=== PATIENT | female | born 1955 | race Caucasian/White ===

== ENCOUNTER 2016-06-18 08:08 | Day surgery (SDC) | payer MEDICARE, OTHER ==
[2016-06-15 08:25] VITALS: BMI 42.7
[~2016-06-18 08:08] MED LIST: LACTATED RINGERS 1,000 ML IV SCH
[2016-06-18] MEDS ORDERED: LIDOCAINE 1% 20 ML VIAL (10MG/ML) FOR IV START INTRADERMA ONE (08:38)
[2016-06-18 08:44] VITALS: RESP 18; TEMP 98
[2016-06-18 08:46] LABS: Glucose,Whole Blood 132 mg/dL (75-99)
[2016-06-18] MEDS ORDERED: BUPIVACAINE (PF) 0.5% 30 ML VIAL ONE (09:16)
[2016-06-18] MEDS ORDERED: MIDAZOLAM 2 MG/2 ML VIAL ONE (09:16)
[2016-06-18] MEDS ORDERED: fentaNYL (PF) 50 MCG/ML 2 ML AMP ONE (09:16)
[2016-06-18] MEDS ORDERED: TRIAMCINOLONE ACETONIDE 40 MG/ML 1 ML VIAL ONE (09:16)
--- NOTE | 2016-06-18 09:53 | P.PCN ---
Date of Procedure: 06/18/16 Procedure(s) Performed: PREOPERATIVE DIAGNOSIS: 1-Lumbar Spondylosis with Facet Arthropathy without myelopathy. 2- Lumber degenerative disc disease POSTOPERATIVE DIAGNOSIS: 1- Lumbar Spondylosis with Facet Arthropathy without myelopathy. 2- Lumber degenerative disc disease PROCEDURES : Left Radiofrequency thermocoagulation, L3-L4, L4-L5, and L5-S1 medial branch, with fluoroscopic guidance ANESTHESIA: IV sedation with versed 2 mg and fentaneyl 100 mcg and local infiltration with lidocaine 1% 6 ml EBL: Minimal PROCEDURE INDICATION: The patient with low back pain secondary to lumbar facet arthropathy who had more than 50% relief of her pain with previous diagnostic lumbar medial branch block with bupivacaine only did the radiofrequency later on , the patient had good results with the radiofrequency on that lasted more than 6 months, currently patient complaining of severe low back pain exam was positive for facet loading test, and because patient had good results with the radiofrequency we will repeat the radiofrequency, and there is no reason to do the diagnostic medial branch block again. PROCEDURE DESCRIPTION / TECHNIQUE: The patient was seen and identified in the preoperative area. Risks, benefits, complications, including but not limited to risk of infection ,bleeding , allergic reactions to the medications and no complete pain releife , and alternatives were discussed with the patient, the patient agreed to proceed with the procedure and signed the consent. IV was started. Vital signs remained stable throughout the procedure. Patient was taken to the OR and time out was completed. The patient was placed in the prone position on the procedure table. The lumber area was prepped and draped in the usual sterile fashion. . Vital signs were closely monitored during the procedure .IV sedation was used during the procedure to decrease patients anxiety. Using AP and then oblique fluoroscopy, the ``eye of the Elver dog corresponding to the connection between the superior and transverse articular processes of Left L3, L4, and L5 were identified, marked, and localized with 1 % lidocaine. Subsequently, a 18 -cf radiofrequency cannula with a 10- mm active tip was advanced guided by fluoroscopy to each of the ``eyes of the Elver dog at Left L3, L4, and L5. Each site then underwent sensory testing at 50 Hz and 0 to 1 volt and motor testing at 2.5 Hz and 0 to 3 volt with local stimulation, but no radicular symptoms down the legs. Thereafter the Left L3-4, L4-5, and L5-S1 sites underwent radiofrequency thermocoagulation at 80 degrees celsius for 90 seconds after injecting 0.5 ml of PF lidocaine 1%. then After the thermocoagulation done , 1 ml of the block solution containing Kenalog 40 mg and 3 ml of marain 0.5% was injected at the Left L3-4 , L4-5 , and L5-S1, levels after negative aspiration of CSF and blood and with no paresthesias. Cannulas were retracted while injecting lidocaine 1% until the needle is out. At the end of the procedure, the skin was cleansed and bandages were applied. COMPLICATIONS: No acute complications. DISPOSITION / PLANS: The patient was placed in a supine position and transferred to the recovery area in a stable condition for observation and was discharged from the recovery room after meeting discharge criteria. Home discharge instructions given to the patient by the staff. The patient was reexamined prior to discharge. The patient will schedule a follow up in the clinic in 2-4 weeks.
[2016-06-18] MEDS ORDERED: IV FLUID CONTINUATION 1,000 ML IV ONE (09:57)
--- NOTE | 2016-06-18 09:58 | FL ---
FLUOROSCOPY 13 seconds of fluoroscopy time were utilized during Pain Injection. 3 images document the procedure.
[2016-06-18 10:14] VITALS: BP 105/68; PULSE 83
== END 2016-06-18 10:38 | disposition home or self-care (01) ==
LOC: ORPAIN 08:08
PROVIDERS: ATTEND Specialist
DX: M47.816 Spondylosis without myelopathy or radiculopathy, lumbar region (principal); M46.96 Unspecified inflammatory spondylopathy, lumbar region; M51.36 Other intervertebral disc degeneration, lumbar region; Z88.1 Allergy status to other antibiotic agents; Z88.5 Allergy status to narcotic agent; Z91.011 Allergy to milk products; Z88.2 Allergy status to sulfonamides; Z88.7 Allergy status to serum and vaccine; Z91.018 Allergy to other foods; Z91.048 Other nonmedicinal substance allergy status
CPT/HCPCS: 64635; 64636; 99153; 99152; J2250; J3301; J3010

== ENCOUNTER → 2016-07-11 | Outpatient (CLI) | payer MEDICARE, OTHER ==
[2016-07-11 13:11] VITALS: BP 117/76; PULSE 79; RESP 18
--- NOTE | 2016-07-11 13:38 | P.PN ---
Progress Note - Text Patient returns for followup for chronic back pain with mild radiation to legs. Patient recently underwent bilateral lumbar RFA and right shoulder TPI, which provided some relief for 3-4 weeks' interval but has had some low back pain on the right side that began after procedure; she also c/o some low back and hip pain. Patient continues on [place], Klonopin medications for pain with good relief. Patient denies adverse drug effects from medications. Today, pt denies new-onset weakness, bowel/bladder incontinence, or any other signs or symptoms of cauda equina syndrome. There are no signs of acute intoxication, and no indications of medication diversion or overuse. In addition to above, 13-point review of systems is also negative for chest pain , shortness of breath, changes in vision, changes in hearing, new onset weakness , abdominal pain, diarrhea, extreme fatigue, malaise, fever, skin changes, homicidal or suicidal ideation, or bowel or bladder incontinence. Vital Signs: Reviewed in EMR Gen: WDWN, AAOx3, NAD HEENT: NCAT, EOMI, hearing grossly normal Pulm: resp unlabored Abd: soft, NT, ND Neck: supple, trachea midline ROM in flexion lumbar spine: reduced ROM in extension lumbar spine: reduced Lumbar paravertebral tenderness: + Facet loading: + bilateral SI joint tenderness: + R side Junior's test: + R side Straight leg raise: neg Neuro: CN II-XII grossly intact, muscle strength lower extremities PRESERVED Imaging: Reviewed in EMR Assessment: 1. lumbar PLPS 2. sacroiliac joint dysfunction 3. iliolumbar syndrome Plan: 1. Explanation: Opioid and psychological risk scores were reviewed. Diagnoses , prognoses, and multiple treatment options including but not limited to physical therapy, interventional therapies, adjuvant medical therapies, narcotic medication therapies, and surgery were discussed with the patient and all questions were answered to the patient's satisfaction. 2. Opioid agreement: no opioids prescribed today 3. Counseling: The patient was counseled extensively on BODY MASS INDEX, EXERCISE. Specifically, the patient was instructed regarding the importance of weight control and exercise in the context of both chronic pain and overall health. 4. Procedures: right iliolumbar ligament injection x 1 for post-RFA pain, then right SIJ injection x 1 for sacroiliac joint dysfunction 5. Consultations: None 6. Investigations: None 7. Medications: Flexeril 10 mg #60 with three refills 8. Disposition: f/u for procedure as scheduled PQRS measures: 1-Patient's medications are documented in the chart. 2-Tobacco use is negative 3-Patient has not had a pneumococcal vaccine. 4-Advanced care planning discussed, patient unable to give. 5-Opioid contract signed with the patient. 6-Pain positive, follow-up visit or procedure scheduled 7-Patient's blood pressure measured and documented, and WNL. 8-Patient's weight was measured, and body mass index ABOVE the normal limits, and counseling was done. Patient instructed to follow up with PCP. 9-Patient WAS NOT identified as an unhealthy alcohol user.
== END | disposition home or self-care (01) ==
LOC: PNWHC3 12:49
PROVIDERS: ATTEND Anesthesiology
DX: G89.29 Other chronic pain (principal); M25.80 Other specified joint disorders, unspecified joint; Z71.3 Dietary counseling and surveillance; Z98.890 Other specified postprocedural states; Z79.891 Long term (current) use of opiate analgesic; Z79.899 Other long term (current) drug therapy
CPT/HCPCS: 99211

== ENCOUNTER 2016-07-18 11:00 | Day surgery (SDC) | payer MEDICARE, OTHER ==
[2016-07-13 14:44] VITALS: BMI 42.7
[2016-07-18 11:09] VITALS: RESP 18; TEMP 98
[2016-07-18] MEDS ORDERED: LIDOCAINE 1% 20 ML VIAL (10MG/ML) FOR IV START INTRADERMA ONE (11:12)
[2016-07-18 11:14] LABS: Glucose,Whole Blood 110 mg/dL (75-99)
[2016-07-18] MEDS ORDERED: ONDANSETRON 4 MG/2 ML VIAL IVP ONE (12:01)
[2016-07-18] MEDS ORDERED: MIDAZOLAM 2 MG/2 ML VIAL ONE (12:10)
[2016-07-18] MEDS ORDERED: BUPIVACAINE (PF) 0.5% 30 ML VIAL ONE (12:10)
[2016-07-18] MEDS ORDERED: TRIAMCINOLONE ACETONIDE 40 MG/ML 1 ML VIAL ONE (12:10)
[2016-07-18] MEDS ORDERED: fentaNYL (PF) 50 MCG/ML 2 ML AMP ONE (12:10)
--- NOTE | 2016-07-18 12:31 | P.PCN ---
Date of Procedure: 07/18/16 Preoperative Diagnosis: Myofascial pain Morbid obesity Postoperative Diagnosis: Same as above Procedure(s) Performed: Iliolumbar ligament steroid injection under fluoroscopic guidance Right lumbar paravertebral musculature steroid injection under fluoroscopic guidance Anesthesia: MAC Surgeon: Travis Gaston Pathology: none sent Condition: stable Disposition: PACU Description of Procedure: The patient was seen in the preop holding. She had bilateral lumbar medial branch RFA previously but she still had some residual pain on the right side of her lumbar spine. The patient is thought to have iliolumbar syndrome. Her most tender point on the right side of her lumbar spine was identified and skin was marked at this area. The patient was brought into the procedure room and placed in prone position. Skin was prepped with Betadine 3 and draped in a sterile manner. Lidocaine 1% was used to numb the skin over the target points as follows: The right temporal the transverse process of L5 was identified and Kenalog was 200 the skin turgor with history of progressive the right and left And the injection Target Was the Disc Lines across Her to the Iliac Crest and on the Lateral View the Tip Was at the Level of the Tip of the Transverse Process of L5 on the Right Side. I Injected 2 MLS of Marcaine 0.5% +2 Mg of Kenalog and Then the Needle Was Taken out and Placed at the Target Point That Was Marked Preoperatively and Then with X-Ray Guidance for Needle with down to the Level of the Transverse Process of L4 and I Injected Then 5 MLS Marcaine 0.5 % +40 Mg of Kenalog. The Needle used Was 22-gauge 5 Inch Quincke Spinal Needle. Patient tolerated she did well. The patient received 2 mg of IV Versed and 100 g of IV fentanyl for sedation for this procedure.
[2016-07-18] MEDS ORDERED: IV FLUID CONTINUATION 1,000 ML IV ONE (12:35)
[2016-07-18 13:06] VITALS: BP 115/60; PULSE 90
--- NOTE | 2016-07-18 16:05 | FL ---
Fluoroscopy HISTORY: Pain 9 seconds fluoroscopy time supplied to the referring clinician. 1 intraoperative C-arm images docume nt the procedure. See dictated report from anesthesia.
--- NOTE | 2016-07-23 08:42 | CDI ---
Dear Dr. Gaston, The procedure note documents MAC anesthesia was provided for this procedure. The Pain Procedure Record, however, has nothing checked unter Anesthesia Plan and lists 1mg each of Versed/Fentanyl was given. This is conflicting documentation that needs clarification. Please clarify whether the sedation provided Herbert Isabel was MAC (Monitored Anesthesia Care) or conscious sedation. PLEASE DOCUMENT THIS CLARIFICATION AN ADDENDUM TO THE PROCEDURE NOTE. Thank you for your time, Kandy GuadalupeMIDDL[facility]EX [facility] Outpatient Food Counter Attendant Malina [email or web address]
== END 2016-07-18 13:20 | disposition home or self-care (01) ==
LOC: ORPAIN 11:00
PROVIDERS: ATTEND Anesthesiology
DX: M79.1 Myalgia (principal); E66.01 Morbid (severe) obesity due to excess calories; Z68.41 Body mass index [BMI] 40.0-44.9, adult
CPT/HCPCS: 77002; 20550; J2250; J3301; J2405; J3010

== ENCOUNTER 2016-08-16 09:23 | Day surgery (SDC) | payer MEDICARE, OTHER ==
[2016-08-14 15:13] VITALS: BMI 42.7
[2016-08-16 09:46] VITALS: RESP 18; TEMP 97.7
[2016-08-16] MEDS ORDERED: LIDOCAINE 1% 20 ML VIAL (10MG/ML) FOR IV START INTRADERMA ONE (09:56)
[2016-08-16] MEDS: LACTATED RINGERS 1,000 ML IV SCH ×2 (09:56→10:45)
[2016-08-16 09:59] LABS: Glucose,Whole Blood 111 mg/dL (75-99)
[2016-08-16] MEDS ORDERED: MIDAZOLAM 2 MG/2 ML VIAL ONE (10:50)
[2016-08-16] MEDS ORDERED: BUPIVACAINE (PF) 0.5% 30 ML VIAL ONE (10:50)
[2016-08-16] MEDS ORDERED: TRIAMCINOLONE ACETONIDE 40 MG/ML 1 ML VIAL ONE (10:50)
[2016-08-16] MEDS ORDERED: fentaNYL (PF) 50 MCG/ML 2 ML AMP ONE (10:50)
--- NOTE | 2016-08-16 11:21 | FL ---
EXAMINATION TYPE: FL guided pain mgmt statistic DATE OF EXAM: 08/16/2016 11:14 AM HISTORY: Flouroscopy time 5 seconds of fluoroscopy provided. IMPRESSION: 1. Fluoroscopy time.
[2016-08-16] MEDS ORDERED: ONDANSETRON 4 MG/2 ML VIAL IVP ONE (11:37)
[2016-08-16 11:39] VITALS: BP 111/75; PULSE 87
[2016-08-16] MEDS ORDERED: IV FLUID CONTINUATION 1,000 ML IV ONE (11:48)
--- NOTE | 2016-08-16 12:44 | P.PCN ---
Date of Procedure: 08/16/16 Procedure(s) Performed: Preoperative diagnoses= 1-Right sacroiliitis. 2-lumbar spondylosis with lumbar facet arthropathy without myelopathy Postoperative diagnoses= same as preoperative diagnosis. Procedure= Right sacroiliac joint steroid injection under fluoroscopic guidance. Anesthesia= conscious sedation with Versed 2 mg and fentanyl 100 micrograms and local infiltration with lidocaine 1% 4 ml Estimated blood loss=minimal. Procedure indication= the patient had a history of severe chronic low back pain , diagnosed with sacroiliitis and lumbar sacral facet arthropathy unresponsive to conservative treatment. Procedure description= the patient was seen and identified in the preoperative holding area, risks and benefits and alternative of the procedure and possible complications discussed with the patient, and he agreed with the preceding, patient signed the consent, an IV was started, and vital signs were monitored and were stable throughout the procedure, patient was placed in the prone position or table and the lumbosacral area was prepped and draped with a sterile fashion, vital signs were closely monitored during the procedure, the fluoroscopy camera was placed in the contralateral oblique view on the right sacroiliac joint and the lower part of the joint was identified, local infiltration of the skin and subcutaneous tissue with lidocaine 1% 2 mL then a 22-gauge Quincke-type 5 inches , spinal needle advanced slowly under fluoroscopy and placed in the posterior and inferior border of the right sacroiliac joint, placement confirmed with AP and lateral view, and after appropriate needle placement confirmed and after negative aspiration for heme and CSF and there was no paresthesia during the injection, 3 ml of Marcaine 0.5 % and 40 mg of Kenalog injected after negative aspiration, the needle removed, . Patient tolerated the procedure well without any complication, The patient returned to supine position after the back was cleaned and a Band- Aid applied, the patient transported to recovery room in stable condition and he was monitored for 30 minutes before he was discharged home and then patient was reexamined before going home and patient was discharged in stable condition and patient will follow up with the pain clinic in a few weeks
== END 2016-08-16 11:59 | disposition home or self-care (01) ==
LOC: ORPAIN 09:23
PROVIDERS: ATTEND Specialist
DX: G89.29 Other chronic pain (principal); M46.1 Sacroiliitis, not elsewhere classified; Z88.5 Allergy status to narcotic agent; Z88.2 Allergy status to sulfonamides; Z88.8 Allergy status to other drugs, medicaments and biological substances; M47.816 Spondylosis without myelopathy or radiculopathy, lumbar region; M46.96 Unspecified inflammatory spondylopathy, lumbar region; E11.9 Type 2 diabetes mellitus without complications
CPT/HCPCS: 99152; J2250; J3301; J2405; J3010; G0260; 27096

== ENCOUNTER → 2016-09-19 | Outpatient (CLI) | payer MEDICARE, OTHER ==
[2016-09-19 14:52] VITALS: BP 139/79; PULSE 95; RESP 18; TEMP 97.5
--- NOTE | 2016-09-19 20:28 | P.PN ---
Subjective This is follow-up visit for this patient with a history of severe and chronic low back pain secondary to lumbar degenerative disc diseases , lumbar spondylosis with facet arthropathy, Right sacroiliitis ,we have done interventional pain management injection, radiofrequency ablation of the medial branch, lumbar area branches , recently we've done, right side Sacroiliac joint steroid injection, she reported that the sacroiliac joint injection improves her pain significantly, and she is currently taking 1-Neurontin 800 mg 3 times a day 2-Flexeril 10 mg twice a day Patient denies any side effects of the medication, denies excessive drowsiness or sleepiness, denies suicidal ideation, and reports that the current pain medication is helping To control the pain and improve activity of daily living , as she reports she had several episodes of intractable pain especially at night, and she had severe pain in the low back area, in the low back back pain radiating to the buttock. Patient denies any motor or sensory deficit , patient denies any fever or night sweats, denies any change in the bowel movements or urination Physical Examinations : 1-Constitutiona : Cooperative , not in acute distress . 2-HEENT : nech ; supple , no Lymphadenopathy , no Thyromegaly , normal thyroid size . eyes : no ptosis , no icterus, no photophobia . ENT : normal of hearing , normal oropharynx , no Thrush . 3- Respiratory : Chest clear to auscultations Bilaterally , no wheezing , no Rhonchi . 4- Cardiovascular : regular rate and rhythem , S1 , S2 , no S3 , no S4. 5- Gastrointestinal : abdomen soft no tenderness , bowel sounds positive all four quadrents , no organomegally . 6- Genitourinary : Defferred . 7- neurologic : Cranial nerve II to XII intact , no focal neurological deffecit . 8-psychatric : alert , oriented X 3 , appropriate affect , intact judgment and insight . 9-Lymphatic : no Lymphadenopathy . 10- musculoskeltal : exams of the Lumber spine = motor strength lower extremities ,thigh and legs .5/5 deep tendon reflexes : normal Knee Jerk , normal ankle Jerk . lumber facet Loading Test positive strait leg raising test positive at 30 degree , RT ,LT , Fabere test positive RT and positive LT . Range of motion: Range of motion in flexion of the lumbar spine 30 degrees Range of motion range of motion of extension of the lumbar spine 10 Sever tenderness over the Sacroiliac joint on the Right , Assessment and plan = - Chronic low back pain secondary to lumbar degenerative disc disease , lumbar spondylosis with facet arthropathy without myelopathy , right sacroiliitis - diagnoses, prognosis, and treatment options including but not limited to physical therapy, surgical interventions, interventional therapies , and medication management including narcotics and adjuvant medication were discussed with pateints. Patient given prescription refill for Neurontin 800 mg every 8 hours dispense 90 with 2 refill, Flexeril 10 mg twice a day dispense 60 with 2 refills. And because patient having episode of severe intractable pain in the low back area, she will be given prescription for Percocet 5/325 every 6 hours when necessary dispense 10 Note referral and she will be seen in the pain clinic in 3 months Objective - Vital Signs Vital signs: Vital Signs Temp 97.5 F L 09/19/16 14:43 Pulse 95 09/19/16 14:43 Resp 18 09/19/16 14:43 BP 139/79 09/19/16 14:43 Pulse Ox Intake & Output 09/19/16 09/19/16 09/20/16 06:59 18:59 06:59 Weight 107.955 kg
== END | disposition home or self-care (01) ==
LOC: PNWHC3 14:38
PROVIDERS: ATTEND Specialist
DX: M51.36 Other intervertebral disc degeneration, lumbar region (principal); M47.816 Spondylosis without myelopathy or radiculopathy, lumbar region; M46.86 Other specified inflammatory spondylopathies, lumbar region; M46.1 Sacroiliitis, not elsewhere classified
CPT/HCPCS: 99211

== ENCOUNTER → 2016-12-12 | Outpatient (CLI) | payer MEDICARE, OTHER ==
[2016-12-12 12:34] VITALS: BP 129/84; PULSE 93; RESP 16; TEMP 97.8
--- NOTE | 2016-12-12 12:46 | P.PN ---
Progress Note - Text Patient returns for followup for chronic back pain with mild radiation to legs. Patient did very well with R SIJ injection performed in August 2016. Patient continues on occasional Percocet, Flexeril, and Neurontin for pain with good relief. Patient denies adverse drug effects from medications. Today, pt denies new-onset weakness, bowel/bladder incontinence, or any other signs or symptoms of cauda equina syndrome. There are no signs of acute intoxication, and no indications of medication diversion or overuse. In addition to above, 13-point review of systems is also negative for chest pain , shortness of breath, changes in vision, changes in hearing, new onset weakness , abdominal pain, diarrhea, extreme fatigue, malaise, fever, skin changes, homicidal or suicidal ideation, or bowel or bladder incontinence. Vital Signs: Reviewed in EMR Gen: WDWN, AAOx3, NAD HEENT: NCAT, EOMI, hearing grossly normal Pulm: resp unlabored Abd: soft, NT, ND Neck: supple, trachea midline ROM in flexion lumbar spine: reduced ROM in extension lumbar spine: reduced Lumbar paravertebral tenderness: + Facet loading: + bilateral SI joint tenderness: + R side Junior's test: + R side Straight leg raise: neg Neuro: CN II-XII grossly intact, muscle strength lower extremities PRESERVED Imaging: Reviewed in EMR Assessment: 1. lumbar PLPS 2. sacroiliac joint dysfunction 3. chronic pain syndrome Plan: 1. Explanation: Opioid and psychological risk scores were reviewed. Diagnoses , prognoses, and multiple treatment options including but not limited to physical therapy, interventional therapies, adjuvant medical therapies, narcotic medication therapies, and surgery were discussed with the patient and all questions were answered to the patient's satisfaction. 2. Opioid agreement: Already signed. 3. Counseling: The patient was counseled extensively on BODY MASS INDEX, EXERCISE. Specifically, the patient was instructed regarding the importance of weight control and exercise in the context of both chronic pain and overall health. 4. Procedures: right SIJ injection 4-6 weeks 5. Consultations: None 6. Investigations: None 7. Medications: Flexeril 10 mg #60 with three refills; added Percocet 5/325 # 10 (for three months) 8. Disposition: f/u for procedure as scheduled PQRS measures: 1-Patient's medications are documented in the chart. 2-Tobacco use is negative 3-Patient has not had a pneumococcal vaccine. 4-Advanced care planning discussed, patient unable to give. 5-Opioid contract signed with the patient. 6-Pain positive, follow-up visit or procedure scheduled 7-Patient's blood pressure measured and documented, and WNL. 8-Patient's weight was measured, and body mass index ABOVE the normal limits, and counseling was done. Patient instructed to follow up with PCP. 9-Patient WAS NOT identified as an unhealthy alcohol user.
== END | disposition home or self-care (01) ==
LOC: PNWHC3 11:44
PROVIDERS: ATTEND Anesthesiology
DX: G97.1 Other reaction to spinal and lumbar puncture (principal); M53.3 Sacrococcygeal disorders, not elsewhere classified; G89.4 Chronic pain syndrome
CPT/HCPCS: 99211

== ENCOUNTER 2017-02-06 07:14 | Day surgery (SDC) | payer MEDICARE, OTHER ==
[2017-02-06 07:25] VITALS: TEMP 98.1
[2017-02-06] MEDS ORDERED: LIDOCAINE 1% 20 ML VIAL (10MG/ML) FOR IV START INTRADERMA ONE (07:32)
[2017-02-06 07:35] LABS: Glucose,Whole Blood 194 mg/dL (75-99)
--- NOTE | 2017-02-06 08:10 | P.PCN ---
Date of Procedure: 02/06/17 Surgeon: Jimmy Arshad Pathology: none sent Condition: stable Disposition: PACU Description of Procedure: PREOPERATIVE DIAGNOSIS: 1-Right sacroiliitis. 2 Lumbar DDD POSTOPERATIVE DIAGNOSIS:. 1-Right sacroiliitis. 2 Lumbar DDD PROCEDURES: Right Sacroiliac joint steroid injection with fluoroscopic guidance ANESTHESIA: Local with 1% lidocaine; conscious sedation EBL: Minimal. PROCEDURE INDICATIONS: This patient with a history of low back pain secondary to sacroiliitis and lumbar DDD unresponsive to conservative management. PROCEDURE DESCRIPTION: The patient was seen and identified in the preoperative area. Risks, benefits, complications, and alternatives were discussed with the patient (including but not limited to incomplete pain relief, bleeding, infection, nerve damage, and allergies to medications), the patient agreed to proceed with the procedure and signed the consent after all questions were answered. Patient was taken to the OR and time out was completed to verify proper patient , position, laterality of pain, and allergies. Pt was placed in the prone position and a pillow was placed under the abdomen to reduce lumbar lordosis. The lumbosacral area was prepped and draped in the usual sterile fashion. Critical pause was taken. Vital signs were closely monitored during the procedure. The fluoroscopic camera was placed in contralateral oblique view and right sacroiliiac joint lower pole was identified. After local infiltration with 1% lidocaine 2 ml, Subsequently, a 22-gauge 3.5 inch spinal needle was introduced into the posteroinferior aspect of the right sacroiliac joint under direct fluoroscopic visualization. Subsequently, 4 ml of a solution of a total of 4 ml solution containing total 3 mL of 0.25% preservative-free bupivicaine mixed with 40 mg of Kenalog was injected after negative aspiration for CSF, blood, and air and negative for paresthesia. Needle was withdrawn intact. Skin was cleansed, and bandages were applied. COMPLICATIONS: None. COMMENTS: DISPOSITION / PLANS: The patient was placed in a supine position and transferred to the recovery area in a stable condition for observation and was discharged from the recovery room after meeting discharge criteria. Home discharge instructions given to the patient by the staff. The patient was reexamined prior to discharge and had significant relief. The patient will schedule a repeat procedure in 2-4 weeks.
[2017-02-06] MEDS ORDERED: IV FLUID CONTINUATION 1,000 ML IV ONE (08:15)
[2017-02-06 08:23] VITALS: RESP 16
[2017-02-06 08:40] VITALS: BP 103/64; PULSE 83
--- NOTE | 2017-02-06 09:07 | FL ---
Fluoroscopy HISTORY: Pain 3 seconds fluoroscopy time supplied to the referring clinician. 2 intraoperative C-arm images docume nt the procedure. See dictated report from anesthesia.
== END 2017-02-06 08:50 | disposition home or self-care (01) ==
LOC: ORPAIN 07:14
PROVIDERS: ATTEND Anesthesiology
DX: G89.29 Other chronic pain (principal); M46.1 Sacroiliitis, not elsewhere classified; M51.36 Other intervertebral disc degeneration, lumbar region; I10 Essential (primary) hypertension; Z91.012 Allergy to eggs; Z88.5 Allergy status to narcotic agent; Z88.2 Allergy status to sulfonamides; Z88.7 Allergy status to serum and vaccine; Z91.09 Other allergy status, other than to drugs and biological substances
CPT/HCPCS: J2250; J3301; Q9965; J3010; G0260; 27096; 99152

== ENCOUNTER → 2017-05-02 | Outpatient (CLI) | payer MEDICARE, OTHER ==
--- NOTE | 2017-05-02 16:46 | XR ---
EXAMINATION TYPE: XR chest 2V DATE OF EXAM: 05/02/2017 COMPARISON: NONE HISTORY: Cough TECHNIQUE: Frontal and lateral views of the chest are obtained. FINDINGS: There is no focal air space opacity, pleural effusion, or pneumothorax seen. The cardiac silhouette size is within normal limits. Prominent lung volumes suggests underlying COPD. May be a sp inal curvature. Patient is rotated. There may be some bronchial wall thickening. Flowing osteophytes in the thoracic spine anteriorly possibly indicative of diffuse idiopathic skeletal hyperostosis. The osseous structures are intact. IMPRESSION: Correlate for possible bronchitis. Follow-up as indicated.
== END | disposition home or self-care (01) ==
LOC: RADXRMAIN 15:42
PROVIDERS: ATTEND Family Medicine
DX: R05 Cough (principal)
CPT/HCPCS: 71020

== ENCOUNTER → 2017-10-23 | Outpatient (CLI) | payer MEDICARE, OTHER ==
[2017-10-23 14:08] VITALS: BP 138/73; PULSE 76; RESP 18; TEMP 98.2
--- NOTE | 2017-10-23 14:28 | P.PAINPG ---
Subjective Progress Note Date: 10/23/17 Principal diagnosis: Right Sacroiliitis This is a very pleasant 62-year-old woman with a long-standing history of low back pain. She is undergone previous diagnostic sacroiliac joint injections. These proved very helpful reducing her low back pain as well as the pain which radiates laterally into her hip and down her leg to approximately her knee. The symptoms have returned since she had her blocks performed last year. She is requesting to undergo radio frequency ablation of these nerves to help with her pain. She denies bowel or bladder dysfunction. She denies any weakness or falling. Objective - Vital Signs Vital signs: Vital Signs Temp 98.2 F 10/23/17 13:56 Pulse 76 10/23/17 13:56 Resp 18 10/23/17 13:56 BP 138/73 10/23/17 13:56 Pulse Ox Intake & Output 10/22/17 10/23/17 10/23/17 18:59 06:59 18:59 Weight 106.141 kg - Exam General: The patient is alert and oriented. Patient is not sedateded Patient answers all question appropriately. Cardiac: Heart is regular in rate and rhythm Respiratory: Clear to auscultation. No audible wheezes. Abdomen: Soft nontender nondistended. Lower extremities: Strength is normal bilaterally. Sensation is normal bilaterally. Reflexes are preserved and symmetric bilaterally. Straight leg raise is negative bilaterally. She is tender to palpation bilaterally over her sacroiliac joints but worse on the right side. Samaria's maneuver is positive bilaterally. Assessment and Plan (1) Sacroiliac joint pain Narrative/Plan: Plan of Care 1. Medications: Patient is currently receiving medications from another practitioner. I've counseled her about the risks of benzodiazepines and opiates. 2. Interventions: I believe the patient would benefit from radio for dizzy ablation of her right lateral branch radiofrequency ablation at the S1, S2 and S3 levels. 3. Referrals: None 4. Testing: None 5. Psychological: Patient has a significant amount psychological stressors in her life right now I've encouraged her to attend therapy sessions however she reports she is too busy to attend these. I also recommend that she attend physical therapy and she also declines this due to her schedule constraints. She will keep both of these things in mind and that should she thinks change with her schedule she will contact us so that she can begin these helpful interventions. Current Visit: Yes Status: Acute Code(s): M53.3 - SACROCOCCYGEAL DISORDERS, NOT ELSEWHERE CLASSIFIED SNOMED Code(s): 638207164 PQRS Measure Charge Sheet Measure #130: Documentation of Current Meds in Medical Chart: Patient's medications documented in chart Measure #226: Tobacco Use: Screen & Cessation Intervention: Pt screened for tobacco use AND intervention given Measure #111: Pneumonia Vaccination: Pneumococcal vaccine NOT administered or previously given Measure #47: Advance Care Plan: Advance care planning discussed & documented, pt chose/unable to give Measure #412: Opioid Treatment Agreement: No documentation of signed opioid treatment agreement Measure #408: Opioid Therapy Follow-up Evaluation: Patient had f/u eval minimum every 3 months during opioid therapy Measure #317: Preventitive Care & Scrn High Bld Press & F/U: Normal blood pressure, f/u not required Measure #128: Body Mass Index (BMI) Screening & Follow-up: BMI documented ABOVE normal parameters - f/u documented Measure #431: Unhealthy Alcohol Use Preventative Care & Scrn: Patient not identified as an unhealthy alcohol user PQRS Narrative: Smoking Status Former smoker Do You Want the Pneumonia No Vaccine AT THIS TIME? Narcotic Agreement Date Signed 09/19/16 Blood Pressure 138/73 Pain Intensity [Upper Back] 7 Pain Intensity [Lower Back] 7 Hx Alcohol Use (MH) No Home Medications: Ambulatory Orders Esomeprazole Magnesium [NexIUM] 40 mg PO HS 11/18/13 Loratadine [Claritin] 10 mg PO HS 06/10/14 Montelukast [Singulair] 10 mg PO HS tab 07/25/14 Escitalopram [Lexapro] 20 mg PO HS 02/22/15 Lubiprostone [Amitiza] 24 mcg PO HS 12/11/15 Canagliflozin/Metformin HCl [Invokamet 150-1,000 mg Tablet] 1 each PO BID glipiZIDE [Glucotrol XL] 10 mg PO DAILY 04/17/16 Lidocaine 5% Oint [Xylocaine 5% Oint] 1 applic TOPICAL DAILY PRN 09/19/16 Cyclobenzaprine [Flexeril] 10 mg PO BID PRN #60 tab 12/12/16 Carbidopa/Levodopa [Sinemet CR 50-200 mg] 2 tab PO DAILY 02/01/17 Diazepam [Valium] 10 mg PO HS 10/23/17 Gabapentin 800 mg PO QID 10/23/17 Controlled Substance Measures - Controlled Substance Measures Is patient prescribed a controlled substance at discharge?: No
== END | disposition home or self-care (01) ==
LOC: PNWHC3 12:46
PROVIDERS: ATTEND Pain Medicine Pain Medicine
DX: M53.3 Sacrococcygeal disorders, not elsewhere classified (principal); Z87.891 Personal history of nicotine dependence; Z79.899 Other long term (current) drug therapy; Z79.84 Long term (current) use of oral hypoglycemic drugs
CPT/HCPCS: 99211

== ENCOUNTER 2017-10-24 09:50 | Day surgery (SDC) | payer MEDICARE, OTHER ==
[2017-10-24] MEDS ORDERED: LACTATED RINGERS 1,000 ML IV SCH (10:00)
[2017-10-24 12:02] VITALS: RESP 18; TEMP 98.3
[2017-10-24 12:11] LABS: Glucose,Whole Blood 165 mg/dL (75-99)
--- NOTE | 2017-10-24 12:47 | P.PCN ---
Date of Procedure: 10/24/17 Procedure(s) Performed: PREOPERATIVE DIAGNOSIS: 1-Lumbosacral spondylosis with facet arthropathy without myelopathy. 2-Right sacroiliit. post operative Diagnosis: . 1-Lumbosacral spondylosis with facet arthropathy without myelopathy. 2- Right sacroiliit. PROCEDURES: 1- Right radiofrequency thermocoagulation/ablation of the L5 dorsal ramus. 2- Right multi-site radiofrequency thermocoagulation/ablation of the S1, S2, lateral branchs. The procedure was performed using fluoroscopic guidance during needle placement to assure proper position and maximize safety . ANESTHESIA: LOCAL ANESTHESIA = moderate sedation with intravenous versed 2 mg and Fentanyle 100 mcg EBL: NONE INDICATION/MEDICAL NECESSITY: History of low back pain secondary to right sacroiliitis and lumbosacral arthropathy unresponsive to more conservative treatments. The patient reported more than 50% relief of pain symptoms following 2 previous diagnostic blocks with Bupivacaine. PROCEDURE DESCRIPTION: The patient was seen and identified in the preoperative area. Risks, benefits, complications, and alternatives were discussed with the patient. The patient agreed to proceed with the procedure and signed the consent. Vital signs were checked before and after the procedure and they remained stable. Patient ambulated to the procedure room and time out was completed. The patient was placed in the prone position on the procedure table and a pillow was placed under the abdomen to reduce lumbar lordosis. The lumbosacral area was prepped and draped in the usual sterile fashion. Critical pause was taken. L5 Dorsal Ramus RF: Using right oblique fluoroscopy, the junction of the transverse process and the superior articular process of the right S1 vertebra, which correspond to the fluoroscopic image of the "eye of the Elver dog" was identified. Subsequently, a 10-cm 20 -gauge radiofrequency cannula with a 10-mm active tip was advanced under fluoroscopic guidance until contact was made with periosteum. At this level, the Sensory testing of the L5 dorsal ramus was performed at 50 Hz and 0 to 1 volt with production of concordant pain starting at 0.5 volt. Motor stimulation was done at 2.5 Hz with stimulation of mulitifidus muscle contration . No radicular symptoms or paresthesias were produced during the testing. Subsequently, the L5 dorsal ramus was subjected to a radiofrequency ablation at 80 degree celsius for 90 seconds . after 0.5% Bupivacaine 1 ml injected at each level after negative aspirations . The needle was withdrawn intact . S1, S3, and S3 Lateral Branch RF: The lateral margins of the Right S1, S2, foramina were identified using AP fluoroscopy. Under fluoroscopic guidance, three 10-cm 20 -gauge radiofrequency cannula with a 10-mm active tip were inserted at 8-10 mm peripheral to the posterior S1 foramen, at various locations using clock-face coordinates. The center of the clock was registered at the lateral margin of the foramen. The 2: 30, 4:00, and 5:30 oclock positions were used. At this level, the sensory testing of the S1 lateral branch was performed at 50 Hz and 0 to 1 volt at the three levels with production of concordant pain starting at 0.5 volt. Motor stimulation was done at 2.5 Hz. No radicular symptoms or paresthesias were produced during the testing. Subsequently, the S1 lateral branch was subjected to a radiofrequency ablation at a mode of 90 seconds at 80 degrees Celsius at the 3 levels after negative motor and sensory testing and after injecting 0.5 ml of preservative free Bupivacaine 0.5 %. The same procedure was performed at the level of the S2 foramen. the plan was to do the RFA of the lateral branches for S3 ,but i did not visualize the S3 foramina . The needle was withdrawn intact after each injection. COMPLICATIONS: The patient tolerated the procedure well without any acute complications. DISPOSTION/PLAN: The patient ambulated to the recovery area after the procedure in a stable condition for observation. Patient was reexamined prior to discharge. Patient was observed for 30 minutes in the recovery area and was discharged home, accompanied by an adult, after meeting discharged criteria. Discharge instructions were give to the patient by the staff. Patient was specifically instructed not to drive today and to rest for the rest of the day. The patient will schedule a follow up visit in the clinic in weeks or earlier if needed.
[2017-10-24] MEDS ORDERED: IV FLUID CONTINUATION 1,000 ML IV ONE (12:48)
[2017-10-24 12:50] VITALS: BP 102/66; PULSE 82
--- NOTE | 2017-10-24 13:21 | FL ---
EXAMINATION TYPE: FL guided pain mgmt statistic DATE OF EXAM: 10/24/2017 HISTORY: Flouroscopy time 12 seconds of fluoroscopy provided. IMPRESSION: 1. Fluoroscopy time.
== END 2017-10-24 13:20 | disposition home or self-care (01) ==
LOC: ORPAIN 09:50
PROVIDERS: ATTEND Specialist
DX: M47.817 Spondylosis without myelopathy or radiculopathy, lumbosacral region (principal); M46.1 Sacroiliitis, not elsewhere classified; J45.909 Unspecified asthma, uncomplicated; G47.33 Obstructive sleep apnea (adult) (pediatric); E11.9 Type 2 diabetes mellitus without complications; I47.1 Supraventricular tachycardia
CPT/HCPCS: 64640 ×2; 64635; J2250; J3301; J3010; 99152; 99153

== ENCOUNTER 2017-11-13 16:53 | Emergency (ER) | payer MEDICARE, OTHER ==
[2017-11-13 17:07] VITALS: RESP 18
[2017-11-13] MEDS ORDERED: SODIUM CHLORIDE 0.9% 1,000 ML IV ONE (17:52)
[2017-11-13] MEDS ORDERED: MORPHINE SULFATE 2 MG/ML SYRINGE IVP STA (17:54)
[2017-11-13] MEDS ORDERED: ONDANSETRON 4 MG/2 ML VIAL IVP STA (17:54)
--- NOTE | 2017-11-13 18:21 | ED ---
Skin/Abscess/FB HPI - General Chief complaint: Skin/Abscess/Foreign Body Stated complaint: POSS MRSA RT BREAST Time Seen by Provider: 11/13/17 17:38 Source: patient Mode of arrival: ambulatory Limitations: no limitations - History of Present Illness Initial comments: 62-year-old female patient presents to the emergency department today for evaluation of abscess to her right breast. Patient states that the abscess developed on Saturday. States that she did see her primary care physician at that time and was started on clindamycin. Patient states that she has had multiple abscesses in the past have been positive for MRSA. States that the abscess seems to be worsening and becoming more painful. States that is it draining purulent fluid. She denies any fevers or chills. Denies any nausea or vomiting. Patient denies any recent rash, shortness breath, chest pain, abdominal pain, diarrhea, constipation, back pain, numbness, tingling, dizziness , weakness, hematuria, dysuria, urinary urgency, urinary frequency, headache, visual changes, or any other complaints. - Related Data Home Medications Medication Instructions Recorded Confirmed Esomeprazole Magnesium [NexIUM] 40 mg PO HS 11/18/13 11/13/17 Loratadine [Claritin] 10 mg PO HS 06/10/14 11/13/17 Escitalopram [Lexapro] 20 mg PO HS 02/22/15 11/13/17 Lubiprostone [Amitiza] 24 mcg PO HS 12/11/15 11/13/17 Canagliflozin/Metformin HCl 1 tab PO BID 04/17/16 11/13/17 [Invokamet 150-1,000 mg Tablet] glipiZIDE [Glucotrol XL] 10 mg PO DAILY 04/17/16 11/13/17 Lidocaine 5% Oint [Xylocaine 5% 1 applic TOPICAL DAILY PRN 09/19/16 11/13/17 Oint] Carbidopa/Levodopa [Sinemet CR 2 tab PO DAILY 02/01/17 11/13/17 50-200 mg] Diazepam [Valium] 10 mg PO HS 10/23/17 11/13/17 Gabapentin 800 mg PO QID 11/13/17 11/13/17 Previous Rx's Medication Instructions Recorded Montelukast [Singulair] 10 mg PO HS tab 07/25/14 Cyclobenzaprine [Flexeril] 10 mg PO BID PRN #60 tab 12/12/16 Allergies Allergy/AdvReac Type Severity Reaction Status Date / Time Egg Derived Allergy Severe rash and Verified 11/13/17 17:28 severe swelling adhesive Allergy blisters Verified 11/13/17 17:28 influenza virus vaccine, Allergy Swelling Verified 11/13/17 17:28 specific [influenza virus vacc,specific] sulfamethoxazole Allergy Rash/Hives Verified 11/13/17 17:28 [From Bactrim] trimethoprim [From Bactrim] Allergy Rash/Hives Verified 11/13/17 17:28 tramadol HCl [From Ultram] AdvReac Severe "TWITCHING Verified 11/13/17 17:28 ALL OVER" clarithromycin [From Biaxin] AdvReac Hallucinati Verified 11/13/17 17:28 ons codeine AdvReac Nausea & Verified 11/13/17 17:28 Vomiting Milk Containing Products AdvReac Abdominal Verified 11/13/17 17:28 [Dairy] Pain wheat AdvReac Abdominal Verified 11/13/17 17:28 Pain trace metals Allergy Rash/Hives Uncoded 11/13/17 17:03 Review of Systems ROS Statement: Those systems with pertinent positive or pertinent negative responses have been documented in the HPI. ROS Other: All systems not noted in ROS Statement are negative. Past Medical History Past Medical History: Asthma, Blood Disorder, Cancer, Diabetes Mellitus, Fibromyalgia, GERD/Reflux, Osteoarthritis (OA), Pneumonia, Sleep Apnea/CPAP/ BIPAP, Thyroid Disorder Additional Past Medical History / Comment(s): HISTORY OF SVT (HAD CARDIAC ABLATION ), CERVICAL CANCER (in remission,) FACTOR 8 , KIDNEY STONES, PNEUMONIA JUN 2016, HX OF DIVERTICULITIS, MULTI NODULE THYROID, RAYNAUD'S. USES BIPAP FOR SLEEP APNEA. History of Any Multi-Drug Resistant Organisms: MRSA Date of last positivie culture/infection: January 2016 MDRO Source:: Abdominal Past Surgical History: Bowel Resection, Breast Surgery, Cardiac Ablation, Section, Hysterectomy, Orthopedic Surgery Additional Past Surgical History / Comment(s): KNEE ARTHROSCOPY X3-(2 ON RT & 1 ON LT), BREAST LUMPECTOMYS X4, CARDIAC ABLATION 06/14/2014, LT SHOULDER SURGERY PAIN CLINIC PROCEDURES, BONE RESECTION OF RIGHT ARM. Past Anesthesia/Blood Transfusion Reactions: Previous Problems w/ Anesthesia, Postoperative Nausea & Vomiting (PONV) Additional Past Anesthesia/Blood Transfusion Reaction / Comment(s): pt states that her blood pressure drops, no prior problems w/transfusion Past Psychological History: Anxiety, Depression Smoking Status: Former smoker Past Alcohol Use History: Rare Past Drug Use History: None Reported - Past Family History Mother Family Medical History: Congestive Heart Failure (CHF), COPD, Thyroid Disorder Additional Family Medical History / Comment(s): Entire maternal family heart issues-ablations, valve replacements,heart attack, a-fib, CHF General Exam Limitations: no limitations General appearance: alert, in no apparent distress, other (This is a well- developed, well-nourished adult female patient in no acute distress. Vital signs upon presentation are temperature 98.7F, pulse 98, respirations 18, blood pressure 153/82, pulse ox 97% on room air.) Eye exam: Present: normal appearance, PERRL, EOMI. Absent: scleral icterus, conjunctival injection, periorbital swelling ENT exam: Present: normal exam, normal oropharynx, mucous membranes moist Respiratory exam: Present: normal lung sounds bilaterally. Absent: respiratory distress, wheezes, rales, rhonchi, stridor Cardiovascular Exam: Present: regular rate, normal rhythm, normal heart sounds. Absent: systolic murmur, diastolic murmur, rubs, gallop, clicks Neurological exam: Present: alert, oriented X3, CN II-XII intact Psychiatric exam: Present: normal affect, normal mood Skin exam: Present: warm, dry, intact, normal color, other (Right breast abscess. Located at approximately 7:00 on the breast. There is central opening with purulent drainage. Minimal surrounding induration. No fluctuance.). Absent : rash Course Vital Signs 11/13/17 11/13/17 17:03 20:24 Temperature 98.7 F Pulse Rate 98 82 Respiratory 18 18 Rate Blood Pressure 153/82 112/64 O2 Sat by Pulse 97 98 Oximetry Medical Decision Making - Medical Decision Making 62-year-old female patient presented to the emergency department today for evaluation of right breast abscess and pain. Physical examination did reveal a draining wound with surrounding erythema. Labs reviewed and did reveal an elevated white blood cell count at 11.3. All other labs are normal. Ultrasound of the right breast was performed and showed no evidence of abscess or fluid collection. Patient's vital signs are stable, she is afebrile. I did discuss findings and results with the patient. I did discuss that we would be comfortable discharging her home to continue taking the clindamycin for treatment of cellulitis. She is instructed to follow-up with her primary care physician for recheck of the wound in 1-2 days. Return parameters were discussed in detail. She verbalizes understanding and agrees with this plan. - Lab Data Result diagrams: 11/13/17 18:10 11/13/17 18:10 Lab Results 11/13/17 11/13/17 Range/Units 18:10 18:10 WBC 11.3 H (3.8-10.6) k/uL RBC 4.98 (3.80-5.40) m/uL Hgb 13.8 (11.4-16.0) gm/dL Hct 42.4 (34.0-46.0) % MCV 85.1 (80.0-100.0) fL MCH 27.7 (25.0-35.0) pg MCHC 32.6 (31.0-37.0) g/dL RDW 14.8 (11.5-15.5) % Plt Count 311 (150-450) k/uL Neutrophils % 66 % Lymphocytes % 26 % Monocytes % 5 % Eosinophils % 1 % Basophils % 0 % Neutrophils # 7.4 (1.3-7.7) k/uL Lymphocytes # 2.9 (1.0-4.8) k/uL Monocytes # 0.6 (0-1.0) k/uL Eosinophils # 0.1 (0-0.7) k/uL Basophils # 0.1 (0-0.2) k/uL Sodium 139 (137-145) mmol/L Potassium 4.0 (3.5-5.1) mmol/L Chloride 107 (98-107) mmol/L Carbon Dioxide 20 L (22-30) mmol/L Anion Gap 12 mmol/L BUN 15 (7-17) mg/dL Creatinine 0.60 (0.52-1.04) mg/dL Est GFR (CKD-EPI)AfAm >90 (>60 ml/min/1.73 sqM) Est GFR (CKD-EPI)NonAf >90 (>60 ml/min/1.73 sqM) Glucose 175 H (74-99) mg/dL Calcium 9.3 (8.4-10.2) mg/dL Total Bilirubin 0.3 (0.2-1.3) mg/dL AST 29 (14-36) U/L ALT 24 (9-52) U/L Alkaline Phosphatase 85 (38-126) U/L Total Protein 6.6 (6.3-8.2) g/dL Albumin 3.8 (3.5-5.0) g/dL - Radiology Data Radiology results: report reviewed, image reviewed Ultrasound of the right breast was obtained. No abscess visualized at the site of wound. Impression by Dr. Van shows no solid or cystic masses identified in the right breast in the area of the wound. Disposition Clinical Impression: Cellulitis of right breast Disposition: HOME SELF-CARE Condition: Good Instructions: Cellulitis (ED), Abscess (ED) Additional Instructions: Apply warm compresses to the right breast. Continue taking clindamycin as directed. Follow-up with your primary care physician for recheck of the wound in 1-2 days. Return here immediately for any new, worsening, or concerning symptoms. Is patient prescribed a controlled substance at d/c from ED?: No Referrals: Saloni Dukes MD [Primary Care Provider] - 1-2 days Time of Disposition: 21:43
[2017-11-13 18:29] LABS: Basophils # (A) 0.1 k/uL (0-0.2); Basophils % (A) 0 %; Eosinophils # (A) 0.1 k/uL (0-0.7); Eosinophils % (A) 1 %; HCT 42.4 % (34.0-46.0); HGB 13.8 gm/dL (11.4-16.0); Lymphocytes # (A) 2.9 k/uL (1.0-4.8); Lymphocytes % (A) 26 %; MCH 27.7 pg (25.0-35.0); MCHC 32.6 g/dL (31.0-37.0); MCV 85.1 fL (80.0-100.0); Mean Platelet Volume 6.1; Monocytes # (A) 0.6 k/uL (0-1.0); Monocytes % (A) 5 %; Neutrophils # (A) 7.4 k/uL (1.3-7.7); Neutrophils % (A) 66 %; Platelet Count 311 k/uL (150-450); RBC 4.98 m/uL (3.80-5.40); RDW 14.8 % (11.5-15.5); WBC 11.3 k/uL (3.8-10.6)
[2017-11-13 18:33] LABS: ALT 24 U/L (9-52); AST 29 U/L (14-36); Albumin 3.8 g/dL (3.5-5.0); Alkaline Phosphatase 85 U/L (38-126); Anion Gap 12 mmol/L; Blood Urea Nitrogen 15 mg/dL (7-17); Calcium 9.3 mg/dL (8.4-10.2); Carbon Dioxide 20 mmol/L (22-30); Chloride 107 mmol/L (98-107); Glucose 175 mg/dL (74-99); Sodium 139 mmol/L (137-145); Total Bilirubin 0.3 mg/dL (0.2-1.3); Total Protein 6.6 g/dL (6.3-8.2)
--- NOTE | 2017-11-13 21:27 | USB ---
EXAMINATION TYPE: US breast limited RT DATE OF EXAM: 11/13/2017 COMPARISON: NONE CLINICAL HISTORY: Right breast abscess. Right breast open woun MERSA . No abscess visualized at site of wound. IMPRESSION: No solid or cystic masses identified in the right breast in the area of the wound.
[2017-11-13 22:08] VITALS: BP 135/82; PULSE 79; TEMP 98
== END 2017-11-13 22:08 | disposition home or self-care (01) ==
LOC: EC 16:53
DX: N61.1 Abscess of the breast and nipple (principal); D72.829 Elevated white blood cell count, unspecified; E11.9 Type 2 diabetes mellitus without complications; K21.9 Gastro-esophageal reflux disease without esophagitis; G47.30 Sleep apnea, unspecified; Z99.89 Dependence on other enabling machines and devices; E07.9 Disorder of thyroid, unspecified; F32.9 Major depressive disorder, single episode, unspecified; F41.9 Anxiety disorder, unspecified; Z86.14 Personal history of Methicillin resistant Staphylococcus aureus infection; Z87.891 Personal history of nicotine dependence; Z79.84 Long term (current) use of oral hypoglycemic drugs; Z79.899 Other long term (current) drug therapy; Z88.7 Allergy status to serum and vaccine; Z88.1 Allergy status to other antibiotic agents; Z91.018 Allergy to other foods; Z91.048 Other nonmedicinal substance allergy status; Z91.011 Allergy to milk products; Z91.012 Allergy to eggs; Z91.09 Other allergy status, other than to drugs and biological substances; Z88.2 Allergy status to sulfonamides; Z88.5 Allergy status to narcotic agent; Z88.6 Allergy status to analgesic agent; Z85.41 Personal history of malignant neoplasm of cervix uteri
CPT/HCPCS: 36415; 80053; 85025; 87040; 87070; 87205; 76642; 99283; 96374; 96375; 96361 ×2; J2405; J2270; 87077; 87186

== ENCOUNTER 2017-12-03 07:14 | Day surgery (SDC) | payer MEDICARE, OTHER ==
[2017-11-11 11:43] VITALS: BMI 42.4
[2017-12-03] MEDS ORDERED: LIDOCAINE 1% 20 ML VIAL (10MG/ML) FOR IV START INTRADERMA ONE (08:10)
[2017-12-03 08:13] VITALS: TEMP 97.6
--- NOTE | 2017-12-03 08:17 | P.PCN ---
Date of Procedure: 12/03/17 Surgeon: Rory Alarcon Description of Procedure: Procedure(s) Performed: PREOPERATIVE DIAGNOSIS: Left lumbar spondylosis POSTOPERATIVE DIAGNOSIS: PROCEDURES: Left L4, L5, sacral ala Radiofrequency ablation with fluoroscopic guidance SURGEON: Rory Alarcon MD. ANESTHESIA: Moderate sedation with intravenous versed 2 mg and fentanyl 100 mcg and local infiltration with lidocaine 1% 4 ml EBL: Minimal PROCEDURE INDICATION: The patient with low back pain secondary to lumbar facet arthropathy who had more than 50% relief of pain with previous diagnostic lumbar medial branch block with bupivacaine. PROCEDURE DESCRIPTION / TECHNIQUE: The patient was seen and identified in the preoperative area. Risks, benefits, complications, including but not limited to risk of infection ,bleeding , allergic reactions to the medications and incomplete pain relief , and alternatives were discussed with the patient, the patient agreed to proceed with the procedure and signed the consent. IV was started. The operative site was marked. Patient was taken to the OR and time out was completed. The patient was placed in the prone position on the procedure table. The lumber area was prepped and draped in the usual sterile fashion. . Vital signs were closely monitored during the procedure .IV sedation was used during the procedure to decrease patients anxiety. Using AP and then oblique fluoroscopy, the ``eye of the Elver dog corresponding to the connection between the superior and transverse articular processes of the above-mentioned levels were identified, marked, and localized with 1% lidocaine. Subsequently, a 20 [id number] radiofrequency cannula with a 10-mm active tip was advanced guided by fluoroscopy to each of the ``eyes of the Elver dog at each site then underwent sensory testing at 50 Hz and 0 to 1 volt and motor testing at 2.5 Hz and 0 to 3 volt with local stimulation, but no radicular symptoms down the legs. Then the sites underwent radiofrequency thermocoagulation at 80 degrees celsius for 90 seconds after injecting 0.5 ml of PF lidocaine 1%. then After the thermocoagulation done , 1 ml of the block solution containing depomedrol 40 mg and 4 ml of marcaine 0.5% was injected in divided doses at each levels after negative aspiration of CSF and blood and with no paresthesias. Sterile dressings were applied. COMPLICATIONS: No acute complications. DISPOSITION / PLANS: The patient was placed in a supine position and transferred to the recovery area in a stable condition for observation and was discharged from the recovery room after meeting discharge criteria. Home discharge instructions given to the patient by the staff. The patient was reexamined prior to discharge. She will follow-up in the office in 4 weeks for reevaluation.
[2017-12-03 08:19] LABS: Glucose,Whole Blood 153 mg/dL (75-99)
[2017-12-03] MEDS ORDERED: IV FLUID CONTINUATION 1,000 ML IV ONE (09:03)
[2017-12-03 09:04] VITALS: RESP 18
[2017-12-03 09:17] VITALS: BP 132/83; PULSE 88
--- NOTE | 2017-12-03 09:19 | FL ---
EXAMINATION TYPE: FL guided pain mgmt statistic DATE OF EXAM: 12/03/2017 HISTORY: Flouroscopy time 3 seconds of fluoroscopy provided. IMPRESSION: 1. Fluoroscopy time.
== END 2017-12-03 09:40 | disposition home or self-care (01) ==
LOC: ORPAIN 07:14
PROVIDERS: ATTEND Pain Medicine Pain Medicine
DX: M47.816 Spondylosis without myelopathy or radiculopathy, lumbar region (principal); E11.9 Type 2 diabetes mellitus without complications; Z88.2 Allergy status to sulfonamides; Z88.8 Allergy status to other drugs, medicaments and biological substances; Z91.048 Other nonmedicinal substance allergy status
CPT/HCPCS: 64635; 64640; J2250; J1030; J2001; J3010; 64636; 99152

== ENCOUNTER → 2018-01-07 | Outpatient (CLI) | payer MEDICARE, OTHER ==
[2018-01-07 14:51] VITALS: BP 144/84; PULSE 94; RESP 20
--- NOTE | 2018-01-07 15:23 | P.PAINPG ---
Subjective Progress Note Date: 01/07/18 This is 62 years old female with a chronic history of severe low back pain, diagnosed with lumbar spondylosis and sacroiliitis, we have done radiofrequency ablation of the sacroiliac joint, and this helped her low back pain significantly, SHE is complaining of severe mid back pain started a few weeks ago and the pain is constant and increases with any activity, though she agreed with her quality of life and ability to do activities of daily livings, she is able to ambulate without difficulty she has no motor or sensory deficit, the pain is constant localized between the shoulder blade area, radiated superiorly and inferiorly Objective - Vital Signs Vital signs: Vital Signs Temp Pulse 94 01/07/18 14:44 Resp 20 01/07/18 14:44 BP 144/84 01/07/18 14:44 Pulse Ox 99 01/07/18 14:44 Intake & Output 01/06/18 01/07/18 01/07/18 18:59 06:59 18:59 Weight 101.605 kg - Exam Physical Examinations : 1-Constitutiona : Cooperative , not in acute distress . 2-HEENT : nech ; supple , no Lymphadenopathy , normal thyroid size . eyes : no ptosis , no icterus , no photophobia . ENT : normal of hearing , normal oropharynx , no Thrush . 3- Respiratory : Chest clear to auscultations Bilaterally , no wheezing , no Rhonchi . 4- Cardiovascular : regular rate and rhythem , S1 , S2 , no S3 , no S4. 5- Gastrointestinal : abdomen soft no tenderness , bowel sounds , no organomegally . 6- Genitourinary : Defferred . 7- neurologic : Cranial nerve II to XII intact , no focal neurological deffecit . 8-psychatric : alert , oriented X 3 , appropriate affect , intact judgment and insight . 9-Lymphatic : no Lymphadenopathy . 10- musculoskeltal : Cervical Spine motor stregnth in the deltoid and biceps, normal right side , normal Left side motor stregnth biceps and the wrist extensors normal right side ,normal left side . motor stregnth in the triceps muscle . normal Right side , normal Left side deep tendon reflexes normal at the biceps , normal at Brachioradialis , normal at triceps. Thoracic spine= positive thoracic facet loading test . Multiple trigger points in the right side thoracic paravertebral muscles Lumber spine moter stegnth lower extremities ,thigh and legs 5/5 Right side , 5/5 Left side Assessment and Plan Plan: Assessment and plan= chronic low back pain secondary to lumbar spondylosis, sacroiliitis Pain improved after radiofrequency ablation of the sacroiliac joint. Mid back pain secondary to thoracic spondylosis versus myofascial pain syndrome thoracic area. We'll order ct SCAN of the thoracic spine , patient given prescription for Percocet 5/325 in the past, and the last time she used Percocet was a few months ago, patient will be given a new prescription for Percocet 5/325 every 12 hours dispense 15, and patient will be seen in few weeks MAPS reviewed and it was appropriate , risk of opioid discussed with the patient, patient's signed narcotic agreement Patient advised not to use any benzodiazepines with the narcotics, and she understood Time with Patient: Less than 30 PQRS Measure Charge Sheet Measure #130: Documentation of Current Meds in Medical Chart: Patient's medications documented in chart Measure #226: Tobacco Use: Screen & Cessation Intervention: Pt not a tobacco user Measure #111: Pneumonia Vaccination: Pneumococcal vaccine NOT administered or previously given Measure #47: Advance Care Plan: Advance care planning discussed & documented, pt chose/unable to give Measure #412: Opioid Treatment Agreement: Documented signed opioid trtmnt agreemnt min once during opioid trtmnt Measure #408: Opioid Therapy Follow-up Evaluation: Patient had f/u eval minimum every 3 months during opioid therapy Measure #317: Preventitive Care & Scrn High Bld Press & F/U: Pre-hypertensive or hypertensive BP documented, pt will f/u with PCP Measure #128: Body Mass Index (BMI) Screening & Follow-up: BMI documented ABOVE normal parameters - f/u documented Measure #131: Pain Assessment & Follow-up: Pain positive & plan documented, Follow-up scheduled Measure #431: Unhealthy Alcohol Use Preventative Care & Scrn: Patient not identified as an unhealthy alcohol user PQRS Narrative: Smoking Status Former smoker Do You Want the Pneumonia No Vaccine AT THIS TIME? Narcotic Agreement Date Signed 09/19/16 Blood Pressure 144/84 Pain Intensity [Lower Back] 8 Scale Used Numeric (1 - 10) Hx Alcohol Use (MH) No Home Medications: Ambulatory Orders Esomeprazole Magnesium [NexIUM] 40 mg PO HS 07/16/14 Montelukast [Singulair] 10 mg PO HS tab 07/25/14 Escitalopram [Lexapro] 20 mg PO HS 02/22/15 Lubiprostone [Amitiza] 24 mcg PO HS 12/11/15 Canagliflozin/Metformin HCl [Invokamet 150-1,000 mg Tablet] 1 tab PO BID glipiZIDE [Glucotrol XL] 10 mg PO DAILY 04/17/16 Lidocaine 5% Oint [Xylocaine 5% Oint] 1 applic TOPICAL DAILY PRN 09/19/16 Cyclobenzaprine [Flexeril] 10 mg PO BID PRN #60 tab 12/12/16 Carbidopa/Levodopa [Sinemet CR 50-200 mg] 2 tab PO DAILY 02/01/17 Diazepam [Valium] 10 mg PO HS 10/23/17 Gabapentin 800 mg PO QID 11/13/17 Controlled Substance Measures - Controlled Substance Measures Is patient prescribed a controlled substance at discharge?: Yes When asked, does pt state using other controlled substances?: No If prescribed controlled substance>3 days was MAPS reviewed?: Yes If Rx opioid, was Start Talking consent form obtained?: Yes If opioid is for acute pain is fill amount 7 days or less?: No Was information provided regarding opioid addiction?: Yes
== END | disposition home or self-care (01) ==
LOC: PNWHC3 13:37
PROVIDERS: ATTEND Specialist
DX: G89.29 Other chronic pain (principal); M54.5 Low back pain; M54.9 Dorsalgia, unspecified; M47.816 Spondylosis without myelopathy or radiculopathy, lumbar region; M46.1 Sacroiliitis, not elsewhere classified; Z79.891 Long term (current) use of opiate analgesic; Z87.891 Personal history of nicotine dependence; Z79.899 Other long term (current) drug therapy
CPT/HCPCS: 99211

== ENCOUNTER → 2018-01-29 | Outpatient (CLI) | payer MEDICARE, OTHER ==
--- NOTE | 2018-01-29 13:15 | CT ---
EXAMINATION TYPE: CT thoracic spine wo con DATE OF EXAM: 01/29/2018 COMPARISON: None HISTORY: 62-year-old female with back pain, Spondylosis without myelopathy or radiculopathy TECHNIQUE: Contiguous axial scanning of the thoracic spine without IV contrast. Coronal and sagittal reconstructions performed. CT DLP: 1809.2 mGycm Automated exposure control for dose reduction was used. FINDINGS: An emphysematous cyst is seen in the right upper lobe. Calcified granulomas in the spleen. No prevert ebral or paravertebral soft tissue abnormality. There is bridging anterior endplate spondylosis throughout the mid to lower thoracic spine with scatt ered endplate Schmorl's nodes in associated mild degenerative disc disease. Vertebral body heights are preserved and alignment is maintained. Slight leftward undulating curvature along the lower thoracic spine. By CT, no large focal disc herniation is seen. No appreciable spinal canal stenosis. No significant bony neuroforaminal narrowing on either side. IMPRESSION: 1. DISH WITHIN THE MID TO LOWER THORACIC SPINE WITH SCATTERED ENDPLATE SCHMORL'S NODES AND ASSOCIATED MILD DEGENERATIVE DISC DISEASE. 2. NO LARGE FOCAL DISC HERNIATION SEEN BY CT. NO SIGNIFICANT NEURAL FORAMINAL STENOSIS IDENTIFIED.
== END | disposition home or self-care (01) ==
LOC: RADCTMAIN 11:58
PROVIDERS: ATTEND Specialist
DX: M51.34 Other intervertebral disc degeneration, thoracic region (principal)
CPT/HCPCS: 72128

== ENCOUNTER → 2018-02-05 | Outpatient (CLI) | payer MEDICARE, OTHER ==
[2018-02-05 13:11] VITALS: BP 141/73; PULSE 97; RESP 16
--- NOTE | 2018-02-05 18:18 | P.PAINPG ---
Subjective Progress Note Date: 02/05/18 Principal diagnosis: Lumbar spondylosis, thoracic spondylosis this is a pleasant 62-year-old woman with a history of intractable low back pain. She is undergone diagnostic lumbar medial branch nerve blocks. These were very helpful for her and she followed up with radiofrequency ablation. This was extremely helpful and has significantly reduced her low back pain. She now complains of mid back pain. This was a complaint at her last visit. Imaging was ordered. This demonstrates thoracic spondylosis in her mid and lower thoracic levels. She denies lumbar radicular symptoms. She denies up our bladder dysfunction. Objective - Vital Signs Vital signs: Vital Signs Temp Pulse 97 02/05/18 12:58 Resp 16 02/05/18 12:58 BP 141/73 02/05/18 12:58 Pulse Ox 100 02/05/18 12:58 Intake & Output 02/04/18 02/05/18 02/05/18 18:59 06:59 18:59 Weight 101.605 kg - Exam General: alert and oriented. She is not sedated. She answered all questions appropriately. HEENT: normocephalic atraumatic respiratory: patient has occasional expiratory wheezes cardiovascular: regular in rate and rhythm abdomen: nontender nondistended extremities: no edema Musculoskeletal: no focal motor deficits in the musculature of the upper extremities or lower extremities. Thoracic facet loading maneuvers are positive. Neurologic: no focal sensory deficits in the upper or lower extremities. Reflexes are within normal limits in the upper and lower extremities. Assessment and Plan (1) Thoracic spondylosis without myelopathy Narrative/Plan: I discussed the patient undergoing thoracic medial branch nerve blocks. She understands this process well as she just went through it for her lumbar spine. We will schedule her for this procedure. This will be done bilaterally at the T8 through T10 levels as this corresponds to the location of her pain. Current Visit: Yes Status: Acute Code(s): M47.814 - SPONDYLOSIS W/O MYELOPATHY OR RADICULOPATHY, THORACIC REGION SNOMED Code(s): 776544218 PQRS Measure Charge Sheet Measure #130: Documentation of Current Meds in Medical Chart: Patient not eligible for medications to be documented Measure #226: Tobacco Use: Screen & Cessation Intervention: Pt not a tobacco user Measure #111: Pneumonia Vaccination: Pneumococcal vaccine NOT administered or previously given Measure #47: Advance Care Plan: Advance care planning discussed & documented, pt chose/unable to give Measure #412: Opioid Treatment Agreement: No documentation of signed opioid treatment agreement Measure #408: Opioid Therapy Follow-up Evaluation: Patient had NO f/u eval minimum every 3 months during opioid therapy Measure #317: Preventitive Care & Scrn High Bld Press & F/U: Pre-hypertensive or hypertensive BP documented, pt will f/u with PCP Measure #128: Body Mass Index (BMI) Screening & Follow-up: BMI documented ABOVE normal parameters - f/u documented Measure #131: Pain Assessment & Follow-up: Pain positive & plan documented Measure #431: Unhealthy Alcohol Use Preventative Care & Scrn: Patient not identified as an unhealthy alcohol user PQRS Narrative: Smoking Status Former smoker Do You Want the Pneumonia No Vaccine AT THIS TIME? Narcotic Agreement Date Signed 09/19/16 Blood Pressure 141/73 Pain Intensity [Posterior 7 Medial Back] Scale Used Numeric (1 - 10) Hx Alcohol Use (MH) No Home Medications: Ambulatory Orders Esomeprazole Magnesium [NexIUM] 40 mg PO HS 11/18/13 Montelukast [Singulair] 10 mg PO HS tab 07/25/14 Escitalopram [Lexapro] 20 mg PO HS 02/22/15 Lubiprostone [Amitiza] 24 mcg PO HS 12/11/15 Canagliflozin/Metformin HCl [Invokamet 150-1,000 mg Tablet] 1 tab PO BID glipiZIDE [Glucotrol XL] 10 mg PO DAILY 04/17/16 Lidocaine 5% Oint [Xylocaine 5% Oint] 1 applic TOPICAL DAILY PRN 09/19/16 Cyclobenzaprine [Flexeril] 10 mg PO BID PRN #60 tab 12/12/16 Carbidopa/Levodopa [Sinemet CR 50-200 mg] 2 tab PO DAILY 02/01/17 Diazepam [Valium] 10 mg PO HS 10/23/17 Gabapentin 800 mg PO QID 11/13/17 Controlled Substance Measures - Controlled Substance Measures Is patient prescribed a controlled substance at discharge?: No
== END | disposition home or self-care (01) ==
LOC: PNWHC3 12:44
PROVIDERS: ATTEND Pain Medicine Pain Medicine
DX: M47.814 Spondylosis without myelopathy or radiculopathy, thoracic region (principal); Z87.891 Personal history of nicotine dependence; Z79.84 Long term (current) use of oral hypoglycemic drugs; Z79.899 Other long term (current) drug therapy; Z98.890 Other specified postprocedural states
CPT/HCPCS: 99211

== ENCOUNTER → 2018-02-20 | Day surgery (SDC) | payer MEDICARE, OTHER ==
[2018-02-14 12:31] VITALS: BMI 40.6
[~2018-02-20] MED LIST changes: -LACTATED RINGERS 1,000 ML IV SCH; +SODIUM CHLORIDE 0.9% 1,000 ML IV ONE
[2018-02-20 06:32] VITALS: RESP 18
[2018-02-20 06:56] LABS: Glucose,Whole Blood 139 mg/dL (75-99)
--- NOTE | 2018-02-20 07:37 | P.PCN ---
Date of Procedure: 02/20/18 Procedure(s) Performed: PREOPERATIVE DIAGNOSIS : 1- Thoracic spondylosis with Facet Arthropathy without myelopathy . POSTOPERATIVE DIAGNOSIS: 1- Thoracic spondylosis with Facet Arthropathy without myelopathy . PROCEDURE: Diagnostic bilateral T8-9, T9-10 , and T10-11 medial branch block under fluoroscopy ANESTHESIA: moderate sedation with intravenous Versed 2 mg and Fentanyl 100 mcg. EBL: Minimal COMPLICATION: None. IV FLUIDS: 100 mL of normal saline. PROCEDURE INDICATION: Chronic mid back pain secondary to Facet arthropathy unresponsive to conservative treatment. PROCEDURE DESCRIPTION: the patient was seen and identified in the preop holding area , risks and benefits and possible complications of the procedure and alternative were discussed with the patient, and the patient agreed to proceed with the procedure and signed the consent IV was started and vital signs monitored during the procedure and fluoroscopy was used to maximize the benefit and accuracy of the needle placement, and sedation was given to decrease patient anxiety, patient was taken to the procedure room and placed in prone position vital signs monitored in the back prepped with chlorhexidine X3 then under strict sterile technique using a right oblique fluoroscopy ,the junction of the transverse process and the superior articulating process of the right T8-9 , T9-10, and T10-11 vertebra which corresponding to the fluoroscopy image of the eye of the Elver dog on the block side for the medial branches and subsequently , after local infiltration of skin and subcu tissuies with Ropivacaine 0.5 % , one mL at each level , then 25 -gauge Quincke-type needles , 3 needle was used , each one of them placed at the junction of the base of the transverse process and the superior articular process at the appropriate level, and the needle was advanced until the periosteum contacted, needle placement confirmed with AP oblique and lateral view and after appropriate needle placement confirmed, and after negative aspiration for heme and CSF and there was no paresthesia 1-1/2 mL of Ropivacaine 0.5% then half mL injected at each level after negative aspiration the needle subsequently removed and the same procedure repeated for the left side at left side at T8-9, T9-10 and T10-11 levels. At the end of the procedure and the needles removed and a bandage applied after the skin was cleaned the cleaning solution patient taken to recovery room in stable condition and monitors in the recovery room for 20-30 minutes and discharged home in stable condition after discharge criteria met and patient will follow up with the pain clinic in 2-4 weeks No steroid was used today .
[2018-02-20 07:41] VITALS: TEMP 98.2
[2018-02-20 07:57] VITALS: BP 108/62; PULSE 75
--- NOTE | 2018-02-20 08:21 | XR ---
EXAMINATION TYPE: XR chest 1V portable DATE OF EXAM: 02/20/2018 Comparison: 05/02/2017 Clinical History: 62-year-old female status post thoracic pain management procedure, assess for pneum othorax Findings: Heart upper limits of normal in size. Aorta and pulmonary vasculature within normal limits. Mild inte rstitial prominence has a chronic appearance. Partial eventration right hemidiaphragm. Large patient body habitus causes underpenetration and hazy densities over the lungs. No danna consolidation, pneum othorax, or pleural effusion seen. Impression: No appreciable pneumothorax.
--- NOTE | 2018-02-20 09:23 | FL ---
EXAMINATION TYPE: FL guided pain mgmt statistic DATE OF EXAM: 02/20/2018 HISTORY: Flouroscopy time 38 seconds of fluoroscopy provided. IMPRESSION: 1. Fluoroscopy time.
== END | disposition home or self-care (01) ==
LOC: ORPAIN 05:58
PROVIDERS: ATTEND Specialist
DX: G89.29 Other chronic pain (principal); M47.814 Spondylosis without myelopathy or radiculopathy, thoracic region; Z88.2 Allergy status to sulfonamides
CPT/HCPCS: 71045; 64490; 64491; 64492; J2250; J3010; 99152

== ENCOUNTER 2018-02-25 17:42 | Emergency (ER) | payer MEDICARE, OTHER ==
[2018-02-25 17:47] VITALS: BP 124/82; RESP 18; TEMP 98.2
--- NOTE | 2018-02-25 20:16 | XR ---
PROCEDURE: XR shoulder complete LT - 4V DATE AND TIME: 02/25/2018 7:28 PM CLINICAL INDICATION: [facility] Pain TECHNIQUE: 4 views COMPARISON: None FINDINGS: There is no definite acute fracture or malalignment. On only 1 of the 4 views the lateral acromion appears irregular, this appears to be due to undulating surface of the lateral acromion. Soft tissues are unremarkable. IMPRESSION: No acute process.
--- NOTE | 2018-02-25 20:17 | XR ---
PROCEDURE: XR humerus LT 2 views DATE AND TIME: 02/25/2018 7:27 PM CLINICAL INDICATION: [facility] Pain TECHNIQUE: Orthogonal views COMPARISON: None FINDINGS: There is no fracture or malalignment. The soft tissues are unremarkable. IMPRESSION: NO ACUTE PROCESS.
--- NOTE | 2018-02-25 20:19 | XR ---
PROCEDURE: XR elbow complete LT 4V DATE AND TIME: 02/25/2018 7:28 PM CLINICAL INDICATION: H Pain TECHNIQUE: Department protocol. 4 views COMPARISON: None FINDINGS: There are scattered osteoarthritis changes. Nondisplaced radial neck fracture cannot be exc luded. Is no fracture or malalignment. The soft tissues are unremarkable. IMPRESSION: NO DEFINITE ACUTE PROCESS. However, nondisplaced radial neck fracture cannot be excluded and, so, dedicated radial head/neck vie w can be useful. Alternative follow up plan could be follow-up imaging if pain persists.
--- NOTE | 2018-02-25 20:21 | XR ---
PROCEDURE: XR wrist complete LT 4V DATE AND TIME: 02/25/2018 7:29 PM CLINICAL INDICATION: [facility] Pain TECHNIQUE: Department protocol. COMPARISON: None FINDINGS: There is no fracture or malalignment. The soft tissues are unremarkable. IMPRESSION: NO ACUTE PROCESS.
--- NOTE | 2018-02-25 20:22 | XR ---
PROCEDURE: XR hand complete LT 3V DATE AND TIME: 02/25/2018 7:29 PM CLINICAL INDICATION: [facility] Pain TECHNIQUE: Department protocol. 3V COMPARISON: None FINDINGS: There is no fracture or malalignment. The soft tissues are unremarkable. IMPRESSION: NO ACUTE PROCESS.
--- NOTE | 2018-02-25 20:52 | ED ---
General Adult HPI - General Chief complaint: Fall Stated complaint: fall/left arm injury Time Seen by Provider: 02/25/18 17:50 Source: patient, RN notes reviewed, old records reviewed Mode of arrival: ambulatory Limitations: no limitations - History of Present Illness Initial comments: 62-year-old female patient presents to ED after mechanical fall in which she tripped dog's leash. Patient denies head trauma or loss of consciousness. Patient fell forward with her left arm taking the force of the majority of her fall. Patient also experienced minor contusions on both knees. Patient's primary complaint is her left elbow wrist and hand. Patient denies any recent fever, chills, shortness of breath, chest pain, back pain, abdominal pain, nausea or vomiting, dysuria or hematuria, constipation or diarrhea, headaches or visual changes, or any other complaints. - Related Data Home Medications Medication Instructions Recorded Confirmed Esomeprazole Magnesium [NexIUM] 40 mg PO HS 11/18/13 02/14/18 Escitalopram [Lexapro] 20 mg PO HS 02/22/15 02/14/18 Lubiprostone [Amitiza] 24 mcg PO HS 12/11/15 02/14/18 Canagliflozin/Metformin HCl 1 tab PO BID 04/17/16 02/14/18 [Invokamet 150-1,000 mg Tablet] glipiZIDE [Glucotrol XL] 10 mg PO DAILY 04/17/16 02/14/18 Lidocaine 5% Oint [Xylocaine 5% 1 applic TOPICAL DAILY PRN 09/19/16 02/14/18 Oint] Carbidopa/Levodopa [Sinemet CR 2 tab PO DAILY 02/01/17 02/14/18 50-200 mg] Diazepam [Valium] 10 mg PO HS 10/23/17 02/14/18 Gabapentin 800 mg PO QID 11/13/17 02/20/18 Previous Rx's Medication Instructions Recorded Montelukast [Singulair] 10 mg PO HS tab 07/25/14 Cyclobenzaprine [Flexeril] 10 mg PO BID PRN #60 tab 12/12/16 Allergies Allergy/AdvReac Type Severity Reaction Status Date / Time Egg Derived Allergy Severe rash and Verified 02/25/18 17:47 severe swelling adhesive Allergy blisters Verified 02/25/18 17:47 influenza virus vaccine, Allergy Swelling Verified 02/25/18 17:47 specific [influenza virus vacc,specific] sulfamethoxazole Allergy Rash/Hives Verified 02/25/18 17:47 [From Bactrim] trimethoprim [From Bactrim] Allergy Rash/Hives Verified 02/25/18 17:47 tramadol HCl [From Ultram] AdvReac Severe "TWITCHING Verified 02/25/18 17:47 ALL OVER" clarithromycin [From Biaxin] AdvReac Hallucinati Verified 02/25/18 17:47 ons codeine AdvReac Nausea & Verified 02/25/18 17:47 Vomiting Milk Containing Products AdvReac Abdominal Verified 02/25/18 17:47 [Dairy] Pain wheat AdvReac Abdominal Verified 02/25/18 17:47 Pain trace metals Allergy Rash/Hives Uncoded 02/25/18 17:47 Review of Systems ROS Statement: Those systems with pertinent positive or pertinent negative responses have been documented in the HPI. ROS Other: All systems not noted in ROS Statement are negative. Past Medical History Past Medical History: Asthma, Blood Disorder, Cancer, Diabetes Mellitus, Fibromyalgia, GERD/Reflux, Osteoarthritis (OA), Pneumonia, Sleep Apnea/CPAP/ BIPAP, Thyroid Disorder Additional Past Medical History / Comment(s): HISTORY OF SVT (HAD CARDIAC ABLATION ), CERVICAL CANCER (in remission,) FACTOR 8 , KIDNEY STONES, PNEUMONIA JUN 2016, HX OF DIVERTICULITIS, MULTI NODULE THYROID, RAYNAUD'S. USES BIPAP FOR SLEEP APNEA. History of Any Multi-Drug Resistant Organisms: MRSA Date of last positivie culture/infection: January 2016 MDRO Source:: Abdominal Past Surgical History: Bowel Resection, Breast Surgery, Cardiac Ablation, Section, Hysterectomy, Orthopedic Surgery Additional Past Surgical History / Comment(s): KNEE ARTHROSCOPY X3-(2 ON RT & 1 ON LT), BREAST LUMPECTOMYS X4, CARDIAC ABLATION 06/14/2014, LT SHOULDER SURGERY PAIN CLINIC PROCEDURES, BONE RESECTION OF RIGHT ARM. Past Anesthesia/Blood Transfusion Reactions: Previous Problems w/ Anesthesia, Postoperative Nausea & Vomiting (PONV) Additional Past Anesthesia/Blood Transfusion Reaction / Comment(s): pt states that her blood pressure drops, no prior problems w/transfusion Past Psychological History: Anxiety, Depression Smoking Status: Former smoker Past Alcohol Use History: None Reported Past Drug Use History: None Reported - Past Family History Brother(s) Family Medical History: Cancer Additional Family Medical History / Comment(s): Small cell carcinoma. Mother Family Medical History: Congestive Heart Failure (CHF), COPD, Thyroid Disorder Additional Family Medical History / Comment(s): Entire maternal family heart issues-ablations, valve replacements,heart attack, a-fib, CHF General Exam - General Exam Comments Initial Comments: General: Patient appears to be in no distress. Vital stable. HEENT: Pupils equal round reactive to light. Trachea midline. Full active range of motion of neck. Mucous membranes moist. Cardiac: Regular rate rhythm no murmur or gallop. Pulmonary: Lungs are clear bilaterally. No rales, rhonchi. MSK: Patient is ambulatory with active range of motion in both lower extremities. Minor contusion noted on tibial tuberosity of lower extremities bilaterally. Patient has full range of motion of both upper extremities, with exception of left shoulder which was a pre-existing condition. Patient experiences pain with pronation and flexion of left forearm. Patient is tender to ulnar surface of forearm and the radial head. Patient has no snuffbox tenderness. All extremities neurovascularly intact. Limitations: no limitations Course Vital Signs 02/25/18 17:44 Temperature 98.2 F Pulse Rate 109 H Respiratory 18 Rate Blood Pressure 124/82 O2 Sat by Pulse 97 Oximetry Medical Decision Making - Medical Decision Making Plain films of left elbow, humerus, wrist, shoulder and hand did not display any obvious fracture. However, left radial head fracture cannot be excluded. Long arm OCL splint applied to patient's left upper extremity, patient arm rechecked and neurovascularly intact. Patient denied inpatient analgesic and will take over the counter ibuprofen at home. Patient to follow up with orthopedic as soon as possible. Patient to return to ED if significant swelling or ecchymoses developed or if symptoms continue to worsen. Disposition Clinical Impression: Arm contusion Disposition: HOME SELF-CARE Condition: Good Instructions: How to Use a Sling (ED), Arm Pain (ED) Additional Instructions: Continue discussed outpatient regimen which includes taking [id number] ibuprofen and following up with orthopedic outpatient. Return if significant swelling or ecchymosis develops or if symptoms worsen. Is patient prescribed a controlled substance at d/c from ED?: No Referrals: Saloni Dukes MD [Primary Care Provider] - 1-2 days Arcenio Rangel DO [Doctor of Osteopathic Medicine] - 1-2 days Time of Disposition: 21:00
[2018-02-25 21:10] VITALS: PULSE 92
== END 2018-02-25 21:10 | disposition home or self-care (01) ==
LOC: EC 17:42
DX: S40.022A Contusion of left upper arm, initial encounter (principal); S80.02XA Contusion of left knee, initial encounter; S80.01XA Contusion of right knee, initial encounter; J45.909 Unspecified asthma, uncomplicated; E11.9 Type 2 diabetes mellitus without complications; M79.7 Fibromyalgia; K21.9 Gastro-esophageal reflux disease without esophagitis; M19.90 Unspecified osteoarthritis, unspecified site; G47.30 Sleep apnea, unspecified; Z99.89 Dependence on other enabling machines and devices; F32.9 Major depressive disorder, single episode, unspecified; F41.9 Anxiety disorder, unspecified; Z86.14 Personal history of Methicillin resistant Staphylococcus aureus infection; Z87.891 Personal history of nicotine dependence; Z85.41 Personal history of malignant neoplasm of cervix uteri; Z79.84 Long term (current) use of oral hypoglycemic drugs; Z79.899 Other long term (current) drug therapy; Z91.012 Allergy to eggs; Z88.7 Allergy status to serum and vaccine; Z88.2 Allergy status to sulfonamides; Z91.048 Other nonmedicinal substance allergy status; Z88.5 Allergy status to narcotic agent; Z91.011 Allergy to milk products; Z88.1 Allergy status to other antibiotic agents; Z91.018 Allergy to other foods; Z91.09 Other allergy status, other than to drugs and biological substances; W01.0XXA Fall on same level from slipping, tripping and stumbling without subsequent striking against object, initial encounter; Y92.89 Other specified places as the place of occurrence of the external cause
CPT/HCPCS: 29105; 54235

== ENCOUNTER 2019-02-03 14:42 | Emergency (ER) | payer MEDICARE, OTHER ==
[2019-02-03 14:46] VITALS: TEMP 98
[2019-02-03] MEDS ORDERED: SODIUM CHLORIDE 0.9% 1,000 ML IV STA (15:06)
--- NOTE | 2019-02-03 15:10 | ED ---
General Adult HPI - General Source: patient, RN notes reviewed, old records reviewed Mode of arrival: ambulatory Limitations: no limitations <Brian Deluca - Last Filed: 02/03/19 17:25> <Olu Croft - Last Filed: 02/03/19 17:33> - General Chief complaint: Abdominal Pain Stated complaint: Hernia, sent by Time Seen by Provider: 02/03/19 14:54 - History of Present Illness Initial comments: 63-year-old female patient to see for evaluation of possible strangulated hernia. Patient reports that she has a known large ventral wall hernia. Patient reports that she has been having pain in the suprapubic and left lower quadrant region for approximately 1.5 weeks. Patient was seen by her primary care provider today for evaluation of the hernia at that time he was reportedly hard and nonreducible. Patient states that because his hernia is so large local general surgeons will operate on it. Patient was seen at [facility] surgery a number of years ago where they recommended surgery which she has not had done. Patient denies any other complaints at this time. Systemic: Pt denies fatigue, fever/chills, rash. Pt denies weakness, night sweats, weight loss. Neuro: Pt denies headache, visual disturbances, syncope or pre-syncope. HEENT: Pt denies ocular discharge or irritation, otalgia, rhinorrhea, pharyngitis or notable lymphadenopathy. Cardiopulmonary: Pt denies chest pain, SOB, heart palpitations, dyspnea on exertion. Abdominal/GI: Pt denies n/v/d. : Pt denies dysuria, burning w/ urination, frequency/urgency. Denies new onset urinary or bowel incontinence. MSK: Pt denies myalgia, loss of strength or function in extremities. Neuro: Pt denies new onset weakness, paresthesias. (Brian Deluca) - Related Data Home Medications Medication Instructions Recorded Confirmed Esomeprazole Magnesium [NexIUM] 40 mg PO HS 11/18/13 02/03/19 Escitalopram [Lexapro] 20 mg PO HS 02/22/15 02/03/19 Lubiprostone [Amitiza] 24 mcg PO BID 12/11/15 02/03/19 glipiZIDE [Glucotrol XL] 10 mg PO DAILY 04/17/16 02/03/19 Carbidopa/Levodopa [Sinemet CR 2 tab PO BID@0900,2100 02/01/17 02/03/19 50-200 mg] Diazepam [Valium] 10 mg PO HS 10/23/17 02/03/19 Gabapentin 1,200 mg PO BID@0900,2100 11/13/17 02/03/19 Albuterol Inhaler [Ventolin Hfa 1 - 2 puff INHALATION RT-QID PRN 02/03/19 02/03/19 Inhaler] Carbidopa/Levodopa [Sinemet CR 1 tab PO AC-SUPPER 02/03/19 02/03/19 50-200 mg] Cyclobenzaprine [Flexeril] 10 mg PO Q8H PRN 02/03/19 02/03/19 Empagliflozin/Metformin HCl 1 tab PO BID 02/03/19 02/03/19 [Synjardy 12.5-1,000 mg Tablet] Gabapentin 800 mg PO DAILY@1400 02/03/19 02/03/19 Ibuprofen [Motrin] 800 mg PO Q8H PRN 02/03/19 02/03/19 Previous Rx's Medication Instructions Recorded Montelukast [Singulair] 10 mg PO HS tab 07/25/14 Allergies Allergy/AdvReac Type Severity Reaction Status Date / Time Egg Derived Allergy Severe rash and Verified 02/03/19 16:06 severe swelling adhesive Allergy blisters Verified 02/03/19 16:06 influenza virus vaccine, Allergy Swelling Verified 02/03/19 16:06 specific [influenza virus vacc,specific] liraglutide [From Victoza] Allergy Unknown Verified 02/03/19 16:06 sulfamethoxazole Allergy Rash/Hives Verified 02/03/19 16:06 [From Bactrim] trimethoprim [From Bactrim] Allergy Rash/Hives Verified 02/03/19 16:06 tramadol HCl [From Ultram] AdvReac Severe "TWITCHING Verified 02/03/19 16:06 ALL OVER" clarithromycin [From Biaxin] AdvReac Hallucinati Verified 02/03/19 16:06 ons codeine AdvReac Nausea & Verified 02/03/19 16:06 Vomiting Milk Containing Products AdvReac Abdominal Verified 02/03/19 16:06 [Dairy] Pain wheat AdvReac Abdominal Verified 02/03/19 16:06 Pain trace metals Allergy Rash/Hives Uncoded 02/03/19 14:47 Review of Systems ROS Other: All systems not noted in ROS Statement are negative. <Brian Deluca - Last Filed: 02/03/19 17:25> ROS Other: All systems not noted in ROS Statement are negative. <Olu Croft - Last Filed: 02/03/19 17:33> ROS Statement: Those systems with pertinent positive or pertinent negative responses have been documented in the HPI. Past Medical History Past Medical History: Asthma, Blood Disorder, Cancer, Diabetes Mellitus, Fibromyalgia, GERD/Reflux, Osteoarthritis (OA), Pneumonia, Sleep Apnea/CPAP/BIPAP, Thyroid Disorder Additional Past Medical History / Comment(s): HISTORY OF SVT (HAD CARDIAC ABLATION ), CERVICAL CANCER (in remission,) FACTOR 8 , KIDNEY STONES, PNEUMONIA JUN 2016, HX OF DIVERTICULITIS, MULTI NODULE THYROID, RAYNAUD'S. USES BIPAP FOR SLEEP APNEA. History of Any Multi-Drug Resistant Organisms: MRSA Date of last positivie culture/infection: January 2016 MDRO Source:: Abdominal Past Surgical History: Bowel Resection, Breast Surgery, Cardiac Ablation, Section, Hysterectomy, Orthopedic Surgery Additional Past Surgical History / Comment(s): KNEE ARTHROSCOPY X3-(2 ON RT & 1 ON LT), BREAST LUMPECTOMYS X4, CARDIAC ABLATION 06/14/2014, LT SHOULDER SURGERY PAIN CLINIC PROCEDURES, BONE RESECTION OF RIGHT ARM. Past Anesthesia/Blood Transfusion Reactions: Previous Problems w/ Anesthesia, Postoperative Nausea & Vomiting (PONV) Additional Past Anesthesia/Blood Transfusion Reaction / Comment(s): pt states that her blood pressure drops, no prior problems w/transfusion Past Psychological History: Anxiety, Depression Smoking Status: Former smoker Past Alcohol Use History: None Reported Past Drug Use History: None Reported - Past Family History Brother(s) Family Medical History: Cancer Additional Family Medical History / Comment(s): Small cell carcinoma. Mother Family Medical History: Congestive Heart Failure (CHF), COPD, Thyroid Disorder Additional Family Medical History / Comment(s): Entire maternal family heart issues-ablations, valve replacements,heart attack, a-fib, CHF <Brian Deluca - Last Filed: 02/03/19 17:25> General Exam Limitations: no limitations <Brian Deluca - Last Filed: 02/03/19 17:25> - General Exam Comments Initial Comments: Constitutional: NAD, AOX3, Pt has pleasant affect. HEENT: NC/AT, trachea midline, neck supple, no lymphadenopathy. Posterior pharynx non erythematous, without exudates. External ears appear normal, without discharge. Mucous membranes moist. Eyes PERRLA, EOM intact. There is no scleral icterus. No pallor noted. Cardiopulmonary: RRR, no murmurs, rubs or gallops, no JVD noted. Lungs CTAB in anterior and posterior monge. No peripheral edema. Abdominal exam: Abdomen soft and non-distended. Abdomen moderately tender to palpation in suprapubic left lower quadrant regions. Ventral wall hernia i nferior to umbilicus is soft and reducible at this time. Tender to palpation.. Bowel sounds active in LLQ. No hepatosplenomegaly. No ecchymosis Neuro: CN II-XII grossly intact. No nuchal rigidity. No raccon eyes, no zambrano sign, no hemotympanum. No cervical spinal tenderness. MSK: No posterior calf tenderness bilaterally, homans sign negative bilaterally. Posterior tibialis and radial pulse +2 bilaterally. Sensation intact in upper and lower extremities. Full active ROM in upper and lower extremities, 5/5 stregnth. (Brian Deluca) Course Vital Signs 02/03/19 02/03/19 14:44 16:57 Temperature 98.0 F Pulse Rate 98 70 Respiratory 18 16 Rate Blood Pressure 145/78 117/55 O2 Sat by Pulse 99 97 Oximetry Medical Decision Making - Lab Data Result diagrams: 02/03/19 15:20 02/03/19 15:20 <Brian Deluca - Last Filed: 02/03/19 17:25> - Lab Data Result diagrams: 02/03/19 15:20 02/03/19 15:20 <Olu Croft - Last Filed: 02/03/19 17:33> - Medical Decision Making 63-year-old female patient to see for evaluation of possible strangulated hernia. Patient reports that she has a known large ventral wall hernia. Patient reports that she has been having pain in the suprapubic and left lower quadrant region for approximately 1.5 weeks. Patient was seen by her primary care provider today for evaluation of the hernia at that time he was reportedly hard and nonreducible. Patient states that because his hernia is so large local general surgeons will operate on it. Patient was seen at [facility] surgery a number of years ago where they recommended surgery which she has not had done. Patient denies any other complaints at this time. Patient will signs stable, afebrile. Physical exam displayed: Laboratory investigations revealed nonspecific CBC, CMP and impressive. Lactic acid slightly elevated at 2.2. UA displayed +[address] abdomen and pelvis displayed low midline and slightly to the left ventral hernia sac complaint 2 loose of small bowel measuring 9.4 x 7 cm. Mild stranding noted which may reflect incarceration correlate clinically. 1 L of normal saline administered. Case was discussed with attending physician Dr. Croft who evaluated patient. Discussed case with on- call general surgeon Dr. Ambrosio who stated that patient could be admitted and he'll evaluate patient in the morning or patient to follow-up in office. Patient was recommended for admission to hospital. Patient declined stating that she needed to attend to her pets at home. Risks and benefits were discussed with patient. Patient will be discharged in stable condition and will contact in office tomorrow, return precautions were discussed in depth. Case discussed and patient seen by Dr. Croft. (Brian Deluca) The patient was seen and examined. All diagnostics were reviewed. The case is discussed with PA and I agree with the findings as documented. The patient is unwilling to stay. Risks and benefits are discussed. Return parameters are discussed. She is to follow-up in [address] Biggs (Olu Croft) - Lab Data Lab Results 02/03/19 02/03/19 02/03/19 Range/Units 15:20 15:20 15:20 WBC 10.0 (3.8-10.6) k/uL RBC 4.87 (3.80-5.40) m/uL Hgb 14.5 (11.4-16.0) gm/dL Hct 41.9 (34.0-46.0) % MCV 85.9 (80.0-100.0) fL MCH 29.7 (25.0-35.0) pg MCHC 34.6 (31.0-37.0) g/dL RDW 14.5 (11.5-15.5) % Plt Count 335 (150-450) k/uL Neutrophils % 68 % Lymphocytes % 25 % Monocytes % 4 % Eosinophils % 1 % Basophils % 1 % Neutrophils # 6.8 (1.3-7.7) k/uL Lymphocytes # 2.5 (1.0-4.8) k/uL Monocytes # 0.4 (0-1.0) k/uL Eosinophils # 0.1 (0-0.7) k/uL Basophils # 0.1 (0-0.2) k/uL Sodium 139 (137-145) mmol/L Potassium 4.3 (3.5-5.1) mmol/L Chloride 107 (98-107) mmol/L Carbon Dioxide 23 (22-30) mmol/L Anion Gap 9 mmol/L BUN 15 (7-17) mg/dL Creatinine 0.54 (0.52-1.04) mg/dL Est GFR (CKD-EPI)AfAm >90 (>60 ml/min/1.73 sqM) Est GFR (CKD-EPI)NonAf >90 (>60 ml/min/1.73 sqM) Glucose 108 H (74-99) mg/dL Plasma Lactic Acid Dharmesh 2.2 H* (0.7-2.0) mmol/L Calcium 9.3 (8.4-10.2) mg/dL Total Bilirubin 0.3 (0.2-1.3) mg/dL AST 21 (14-36) U/L ALT <6 L (9-52) U/L Alkaline Phosphatase 106 (38-126) U/L Total Protein 7.3 (6.3-8.2) g/dL Albumin 4.1 (3.5-5.0) g/dL Lipase 52 (23-300) U/L Urine Color Urine Appearance (Clear) Urine pH (5.0-8.0) Ur Specific [place] (1.001-1.035) Urine Protein (Negative) Urine Glucose (UA) (Negative) Urine Ketones (Negative) Urine Blood (Negative) Urine Nitrite (Negative) Urine Bilirubin (Negative) Urine Urobilinogen (<2.0) mg/dL Ur Leukocyte Esterase (Negative) 02/03/19 Range/Units 15:20 WBC (3.8-10.6) k/uL RBC (3.80-5.40) m/uL Hgb (11.4-16.0) gm/dL Hct (34.0-46.0) % MCV (80.0-100.0) fL MCH (25.0-35.0) pg MCHC (31.0-37.0) g/dL RDW (11.5-15.5) % Plt Count (150-450) k/uL Neutrophils % % Lymphocytes % % Monocytes % % Eosinophils % % Basophils % % Neutrophils # (1.3-7.7) k/uL Lymphocytes # (1.0-4.8) k/uL Monocytes # (0-1.0) k/uL Eosinophils # (0-0.7) k/uL Basophils # (0-0.2) k/uL Sodium (137-145) mmol/L Potassium (3.5-5.1) mmol/L Chloride (98-107) mmol/L Carbon Dioxide (22-30) mmol/L Anion Gap mmol/L BUN (7-17) mg/dL Creatinine (0.52-1.04) mg/dL Est GFR (CKD-EPI)AfAm (>60 ml/min/1.73 sqM) Est GFR (CKD-EPI)NonAf (>60 ml/min/1.73 sqM) Glucose (74-99) mg/dL Plasma Lactic Acid Dharmesh (0.7-2.0) mmol/L Calcium (8.4-10.2) mg/dL Total Bilirubin (0.2-1.3) mg/dL AST (14-36) U/L ALT (9-52) U/L Alkaline Phosphatase (38-126) U/L Total Protein (6.3-8.2) g/dL Albumin (3.5-5.0) g/dL Lipase (23-300) U/L Urine Color Yellow Urine Appearance Clear (Clear) Urine pH 6.5 (5.0-8.0) Ur Specific [place] 1.027 (1.001-1.035) Urine Protein Negative (Negative) Urine Glucose (UA) 4+ H (Negative) Urine Ketones Negative (Negative) Urine Blood Negative (Negative) Urine Nitrite Negative (Negative) Urine Bilirubin Negative (Negative) Urine Urobilinogen <2.0 (<2.0) mg/dL Ur Leukocyte Esterase Negative (Negative) Disposition Is patient prescribed a controlled substance at d/c from ED?: No <Barkach,Brian J - Last Filed: 02/03/19 17:25> <Olu Croft J - Last Filed: 02/03/19 17:33> Clinical Impression: Ventral hernia Disposition: HOME SELF-CARE Condition: Stable Instructions (If sedation given, give patient instructions): Ventral Hernia (ED) Additional Instructions: Patient to adhere to previously discussed treatment plan and will take medication(s) as directed. Patient to follow up with PCP in 1-2 days. Patient to return to ED if symptoms do not improve. Follow-up with Dr. Ambrosio tomorrow. Return immediately to the ER if condition worsens in any way. Referrals: Saloni Dukes MD [Primary Care Provider] - 1-2 days Doug Biggs MD [STAFF PHYSICIAN] - 1-2 days
[2019-02-03 15:42] LABS: Appearance,Urine Clear (Clear); Basophils # (A) 0.1 k/uL (0-0.2); Basophils % (A) 1 %; Bilirubin,Urine Negative (Negative); Blood,Urine Negative (Negative); Color,Urine Yellow; Eosinophils # (A) 0.1 k/uL (0-0.7); Eosinophils % (A) 1 %; Glucose,Urine (UA) 4+ (Negative); HCT 41.9 % (34.0-46.0); HGB 14.5 gm/dL (11.4-16.0); Ketones,Urine Negative (Negative); Leukocyte Esterase,Urine Negative (Negative); Lymphocytes # (A) 2.5 k/uL (1.0-4.8); Lymphocytes % (A) 25 %; MCH 29.7 pg (25.0-35.0); MCHC 34.6 g/dL (31.0-37.0); MCV 85.9 fL (80.0-100.0); Mean Platelet Volume 5.3; Monocytes # (A) 0.4 k/uL (0-1.0); Monocytes % (A) 4 %; Neutrophils # (A) 6.8 k/uL (1.3-7.7); Neutrophils % (A) 68 %; Nitrite,Urine Negative (Negative); PH, Urine 6.5 (5.0-8.0); Platelet Count 335 k/uL (150-450); Protein,Urine Negative (Negative); RBC 4.87 m/uL (3.80-5.40); RDW 14.5 % (11.5-15.5); Specific Gravity,Urine 1.027 (1.001-1.035); Urobilinogen,Urine <2.0 mg/dL (<2.0)
[2019-02-03 15:59] LABS: ALT <6 U/L (9-52); AST 21 U/L (14-36); African American GFR (CKD) >90 (>60 ml/min/1.73 sqM); Albumin 4.1 g/dL (3.5-5.0); Alkaline Phosphatase 106 U/L (38-126); Anion Gap 9 mmol/L; Blood Urea Nitrogen 15 mg/dL (7-17); Calcium 9.3 mg/dL (8.4-10.2); Carbon Dioxide 23 mmol/L (22-30); Chloride 107 mmol/L (98-107); Glucose 108 mg/dL (74-99); Potassium 4.3 mmol/L (3.5-5.1); Sodium 139 mmol/L (137-145); Total Bilirubin 0.3 mg/dL (0.2-1.3); Total Protein 7.3 g/dL (6.3-8.2)
--- NOTE | 2019-02-03 16:37 | CT ---
EXAMINATION TYPE: CT abdomen pelvis w con DATE OF EXAM: 02/03/2019 COMPARISON: 08/04/2015 HISTORY: Ventral hernia pain CT DLP: 2144.1 mGycm CONTRAST: CT scan of the abdomen and pelvis is performed without Oral Contrast and with IV Contrast, patient in jected with 100 mL of Isovue 300. FINDINGS: LUNG BASES-: No visible nodule. No infiltrate. LIVER/GB: No calcified gallstones. No space occupying hepatic lesion. Biliary tree is of normal ca liber. Hepatomegaly with underlying fatty hepatic infiltration. PANCREAS: No inflammation. No distinct mass. SPLEEN: No splenic enlargement. No lesion seen. Splenic granuloma noted. ADRENALS: No nodule. No thickening. KIDNEYS/BLADDER: No hydronephrosis. No nephrolithiasis. No distinct renal mass. Urinary bladder g rossly unremarkable. BOWEL: Normal appendix. Normal bowel caliber. No inflammation. Rectosigmoid postoperative change id entified. GENITAL ORGANS: No gross abnormality. LYMPH NODES: No greater than 1cm abdominal or pelvic lymph nodes are appreciated. AORTA: No significant abnormality. OSSEOUS STRUCTURES: No significant abnormality is seen. OTHER: Low midline and slightly to the left ventral hernia sac containing a 2 loops of small bowel me asuring 9.4 x 7.0 cm. There is mild stranding noted and this may reflect incarceration. Correlate cli nically. IMPRESSION: 1. Low midline and slightly to the left ventral hernia sac containing a 2 loops of small bowel measur ing 9.4 x 7.0 cm. There is mild stranding noted and this may reflect incarceration. Correlate clinica lly.
[2019-02-03 16:59] VITALS: BP 117/55; PULSE 70; RESP 16
== END 2019-02-03 17:59 | disposition home or self-care (01) ==
LOC: EC 14:42
DX: K43.9 Ventral hernia without obstruction or gangrene (principal); R74.0 Nonspecific elevation of levels of transaminase and lactic acid dehydrogenase [LDH]; R81 Glycosuria; J45.909 Unspecified asthma, uncomplicated; E11.9 Type 2 diabetes mellitus without complications; K21.9 Gastro-esophageal reflux disease without esophagitis; M79.7 Fibromyalgia; M19.90 Unspecified osteoarthritis, unspecified site; G47.30 Sleep apnea, unspecified; E07.9 Disorder of thyroid, unspecified; Z79.84 Long term (current) use of oral hypoglycemic drugs; Z79.899 Other long term (current) drug therapy; Z79.1 Long term (current) use of non-steroidal anti-inflammatories (NSAID); Z79.51 Long term (current) use of inhaled steroids; Z53.29 Procedure and treatment not carried out because of patient's decision for other reasons; Z87.891 Personal history of nicotine dependence; Z91.012 Allergy to eggs; Z91.048 Other nonmedicinal substance allergy status; Z88.7 Allergy status to serum and vaccine; Z88.2 Allergy status to sulfonamides; Z88.8 Allergy status to other drugs, medicaments and biological substances; Z88.6 Allergy status to analgesic agent; Z88.1 Allergy status to other antibiotic agents; Z88.5 Allergy status to narcotic agent; Z91.011 Allergy to milk products; Z91.018 Allergy to other foods; Z86.14 Personal history of Methicillin resistant Staphylococcus aureus infection; Z99.89 Dependence on other enabling machines and devices; Z85.41 Personal history of malignant neoplasm of cervix uteri
CPT/HCPCS: 36415; 80053; 83605; 83690; 85025; 81003; 74177; 99284; 96360; 96361 ×2; Q9967